=== PATIENT | female | born 1945 ===

== ENCOUNTER 2025-04-02 23:38 | Inpatient (IN) | payer MEDICAID, OTHER ==
[~2025-04-02] VITALS: Ht 152.4 cm; Wt 56.0 kg
--- NOTE | 2025-04-03 00:30 | ED.PDOC ---
History of Present Illness HPI Comments 79-year-old female who came to ER via EMS for shortness of breath. Patient has a history of hypertension. Per EMS, family members noted patient to be short of breath so they called paramedics. Upon arrival, patient is saturating 89% on room air, however patient denies being short of breath, states she just feels generally weak for the past hour. 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 Allergies: Coded Allergies: NO KNOWN ALLERGIES (Unverified , 04/02/25) Information Source: Patient, Emergency Med Personnel Mode of Arrival: EMS Severity: Moderate Timing: Hours Duration: Since onset Past Medical History PAST MEDICAL HISTORY: HTN, UTI'S Surgical History: Denies all surgeries SHEEP BONER History: Denies all SHEEP BONER Hx Family History Family History: Reviewed,noncontributory to illness Social History Smoker: Non-Smoker Alcohol: Denies ETOH Use Drugs: Denies Drug Use Lives In: Home Constitutional: reports: weakness; denies: chills, diaphoresis, fatigue, fever, malaise, sweats, others EENTM: denies: blurred vision, double vision, ear bleeding, ear discharge, ear drainage, ear pain, ear ringing, eye pain, eye redness, hearing loss, mouth pain, mouth swelling, nasal discharge, nose bleeding, nose congestion, nose pain, photophobia, tearing, throat pain, throat swelling, voice changes, others Respiratory: reports: shortness of breath; denies: cough, hemoptysis, orthop kenneth, SOB at rest, SOB with excertion, stridor, wheezing, others Cardiovascular: denies: chest pain, dizzy spells, diaphoresis, Dyspnea on exertion, edema, irregular heart beat, left arm pain, lightheadedness, palpitations, PND, syncope, others Gastrointestinal: denies: abdomen distended, abdominal pain, blood streaked bowels, constipated, diarrhea, dysphagia, difficulty swallowing, hematemesis, melena, nausea, poor appetite, poor fluid intake, rectal bleeding, rectal pain, vomiting, others Genitourinary: denies: abnormal vagina bleeding, burning, dyspareunia, dysuria, flank pain, frequency, hematuria, incontinence, pain, , vagina discharge, urgency, others Neurological: denies: dizziness, fainting, headache, left sided numbness, left sided weakness, numbness, paresthesia, pre-existing deficit, right sided numbness, right sided weakness, seizure, speech problems, tingling, tremors, weakness, others Musculoskeletal: denies: back pain, gout, joint pain, joint swelling, muscle pain, muscle stiffness, neck pain, others Integumetry: denies: bruises, change in color, change in hair/nails, dryness, laceration, lesions, lumps, rash, wounds, others Allergic/Immunocompromised: denies: Difficulty Healing, Frequent Infections, Hives, Itching, others Hematologic/Lymphatic: denies: anemia, blood clots, easy bleeding, easy bruising, swollen glands, others Endocrine: denies: excessive hunger, excessive sweating, excessive thirst, excessive urination, flushing, intolerance to cold, intolerance to heat, unexplained weight gain, unexplained weight loss, others Psychiatric: denies: anxiety, bipolar disorder, depression, hopeless, panic disorder, schizophrenia, sleepless, suicidal, others Physical Exam General Appearance: No Apparent Distress, Normal HEENT: Normal ENT Inspection, Pharynx Normal, TMs Normal Neck: Full Range of Motion, Non-Tender, Normal, Normal Inspection Respiratory: Chest Non-Tender, Lungs Clear, No Accessory Muscle Use, No Respiratory Distress, Normal Breath Sounds Cardiovascular: No Edema, No JVD, No Murmur, No Gallop, Normal Peripheral Pulses, Regular Rate/Rhythm Breast Exam: Deferred Gastrointestinal: No Organomegaly, Non Tender, No Pulsatile Mass, Normal Bowel Sounds, Soft Genitalia: Deferred Pelvic: Deferred Rectal: Deferred Extremities: No calf tenderness, Normal capillary refill, Normal inspection, Normal range of motion, Non-tender, No pedal edema Musculoskeletal : Apperance: Normal 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 Was a procedure done?: No Differential Dx Considerations may include: Anemia, electrolyte imbalance, urinary tract infection, pneumonia, weakness X-Ray, Labs, Meds, VS Vital Signs Date Time Temp Pulse Resp B/P (MAP) Pulse Ox O2 Delivery O2 Flow Rate FiO2 04/03/25 01:33 125 04/02/25 23:48 128 04/02/25 23:38 97.0 124 24 123/77 95 97.0 Lab Test 04/03/25 01:55 04/03/25 00:28 Range/Units Troponin I High Sensitivity 599 *H 762 *H </=34 ng/L White Blood Count 8.9 4.4-10.8 10^3/uL Red Blood Count 4.41 4.0-5.20 10^6/uL Hemoglobin 9.4 L 12.2-16.2 g/dL Hematocrit 30.1 L 36.0-46.0 % Mean Corpuscular Volume 68.2 L 80.0-100.0 fL Mean Corpuscular Hemoglobin 21.2 L 28.0-32.0 pg Mean Corpuscular Hemoglobin Concent 31.1 L 32.0-36.0 g/dL Red Cell Distribution Width 18.6 H 11.8-14.3 % Platelet Count 377 140-450 10^3/uL Mean Platelet Volume 7.1 6.9-10.8 fL Neutrophils (%) (Auto) 79.1 37.0-80.0 % Lymphocytes (%) (Auto) 13.4 10.0-50.0 % Monocytes (%) (Auto) 5.7 0.0-12.0 % Eosinophils (%) (Auto) 1.2 0.0-7.0 % Basophils (%) (Auto) 0.6 0.0-2.0 % Neutrophils # (Auto) 7.1 1.6-8.6 10 ^3/uL Lymphocytes # (Auto) 1.2 0.4-5.4 10 ^3/uL Monocytes # (Auto) 0.5 0-1.3 10 ^3/uL Eosinophils # (Auto) 0.1 0-0.8 10 ^3/uL Basophils # (Auto) 0.1 0-0.2 10 ^3/uL Nucleated Red Blood Cells 0.1 % Sodium Level 141 136-145 mmol/L Potassium Level 3.8 3.5-5.1 mmol/L Chloride Level 110 H 98-107 mmol/L Carbon Dioxide Level 19 L 20-31 mmol/L Anion Gap 12 5-15 Blood Urea Nitrogen 18 9-23 mg/dL Creatinine 0.84 0.550-1.02 mg/dL Glomerular Filtration Rate Calc 71 >90 mL/min BUN/Creatinine Ratio 21.4 H 10.0-20.0 Serum Glucose 152 H 74-106 mg/dL Lactic Acid Level 1.8 0.4-2.0 mmol/L Calcium Level 8.9 8.7-10.4 mg/dL Magnesium Level 2.4 1.6-2.6 mg/dL Total Bilirubin 0.3 0.2-1.0 mg/dL Aspartate Amino Transferase (AST) 27 13-40 U/L Alanine Aminotransferase (ALT) 28 7-40 U/L Alkaline Phosphatase 97 46-116 U/L B-Type Natriuretic Peptide 86.51 0-100 pg/mL Total Protein 7.2 5.7-8.2 g/dL Albumin 4.4 3.2-4.8 g/dL Time of 1ST Reevaluation: 00:27 Reevaluation 1ST: Unchanged Patient Education/Counseling: Diagnosis, Treatment Family Education/Counseling: No Family Present SEPSIS Sepsis Screen Physician Orders Electrocardigram (04/02/25 23:51) Troponin-I Hs (04/03/25 03:08) Chest Xray 1 View (04/03/25 00:08) Urinalysis (04/03/25 00:08) Blood Culture (04/03/25 00:08) Vital Signs Date Time Temp Pulse Resp B/P (MAP) Pulse Ox O2 Delivery O2 Flow Rate FiO2 04/03/25 01:33 125 04/02/25 23:48 128 04/02/25 23:38 97.0 124 24 123/77 95 97.0 Laboratory Tests Test 04/03/25 00:28 Lactic Acid Level 1.8 mmol/L (0.4-2.0) White Blood Count 8.9 10^3/uL (4.4-10.8) Departure 1 Departure Time of Disposition: 03:24 Impression: Primary Impression: Acute coronary syndrome Disposition: 09 ADMITTED INPATIENT Admit to: Tele Condition: Guarded Discharged With: Self Comments 79-year-old female with generalized weakness and shortness of breath. On lab review troponin is quite elevated see a 762. This improved and repeat is improved at 599. Also anemia noted at 9.4 and 30 H&H. Patient was given aspir in. Patient will need to be admitted for acute coronary syndrome Critical Care Note Critical Care Time?: Yes (35 min-critical care time only) Critical care comment: Shortness a breath Total critical care time: Approximately 36 minutes Due to a high probability of clinically significant, life threatening deterioration, the patient required my highest level of preparedness to intervene emergently and I personally spent this critical care time directly and personally managing the patient. This critical care time included obtaining a history; examining the patient; pulse oximetry; ordering and review of studies; arranging urgent treatment with development of a management plan; evaluation of patient's response to treatment; frequent reassessment; and, discussions with other providers. This critical care time was performed to assess and manage the high probability of imminent, life-threatening deterioration that could result in multi-organ failure. It was exclusive of separately billable procedures and treating other patients. Stability Stability form required: No Heart Score Heart Score: Heart Score Response (Comments) Value History Moderate Suspicious 1 EKG Repolarization Disturb 1 Age >65 2 Risk Factors 1 or 2 risk factors 1 Troponin >3 x's Normal limit 2 Total 7 I personally scribed for ARUN TOTH MD ([email or web address]) on 04/03/25 at 00:30. E lectronically submitted by Tiago Ingram ([email or web address]). ARUN TOTH MD Apr 03, 2025 00:30
[2025-04-03 00:53] LABS: Hemoglobin 9.4 g/dL (12.2-16.2); Nucleated Red Blood Cells % 0.1 %
[2025-04-03 00:55] LABS: Hematocrit 30.1 % (36.0-46.0); Mean Corpuscular Hemoglobin 21.2 pg (28.0-32.0); Mean Corpuscular Volume 68.2 fL (80.0-100.0)
[2025-04-03 01:10] LABS: Alanine Aminotransferase 28 U/L (7-40); Albumin 4.4 g/dL (3.2-4.8); Alkaline Phosphatase 97 U/L (46-116); Anion Gap 12 (5-15); BUN/Creatinine Ratio 21.4 (10.0-20.0); Blood Urea Nitrogen 18 mg/dL (9-23); Calcium 8.9 mg/dL (8.7-10.4); Magnesium 2.4 mg/dL (1.6-2.6); Potassium 3.8 mmol/L (3.5-5.1); Sodium 141 mmol/L (136-145); Total Protein 7.2 g/dL (5.7-8.2)
[2025-04-03 01:16] LABS: Bilirubin, Total 0.3 mg/dL (0.2-1.0); Carbon Dioxide 19 mmol/L (20-31); Chloride 110 mmol/L (98-107); Glucose 152 mg/dL (74-106)
--- NOTE | 2025-04-03 03:54 | DVH ---
CHEST RADIOGRAPH Indication: SOB Technique: Single frontal view of the chest was obtained COMPARISON: None FINDINGS: Lines and Tubes: None Lungs: Clear Pleura: No effusion. No pneumothorax. Cardiomediastinal contours: Unremarkable Bones: Unremarkable IMPRESSION: 1. No acute disease.
[2025-04-03 07:30] VITALS: PULSE 109; RESP 18; O2SAT 98
--- NOTE | 2025-04-03 08:12 | DVHHP2 ---
History of Present Illness Reason for Visit: Shortness of breath History of Present Illness Elsie Ferrer is a 79-year-old female with past medical history of hypertension, who was brought to the hospital for shortness of breath. Family states the patient was short of breath prompting them to call EMS. Patient is altered and unsure why she is in the hospital. She denies any shortness of breath or chest pain on assessment. Cardiovascular: HTN Past Surgical History: None Smoke: No ALCOHOL: none Drugs: None Lives: with Family Domestic Violence: Neg Review of Systems Constitutional: No: Fever, Chills, Sweats, Weakness, Malaise, Other Eyes: No: Pain, Vision change, Conjunctivae inflammation, Eyelid inflammation, Other, Redness ENT: No: Ear pain, Ear discharge, Nose pain, Nose discharge, Nose congestion, Mouth pain, Mouth swelling, Throat pain, Throat swelling, Other Respiratory: Shortness of breath; No: Cough, Dry, SOB with excertion, Wheezing, Hemoptysis, Pleuritic Pain, Sputum, Wheezing, Other Cardiovascular: No: Chest Pain, Palpitations, Orthopnea, Paroxysmal Noc. Dyspnea, Edema, Lt Headedness, Other Gastrointestinal: No: Nausea, Vomiting, Abdominal Pain, Diarrhea, Constipation, Melena, Hematochezia, Other Genitourinary: No Dysuria, No Frequency, No Incontinence, No Hematuria, No Retention, No Other Musculoskeletal: No: other, neck pain, shoulder pain, arm pain, back pain, hand pain, leg pain, foot pain Skin: No: Rash, Lesions, Jaundice, Bruising, Other Neurological: No: Weakness, Numbness, Incoordination, Change in speech, Confusion, Seizures, Other Allergies: Coded Allergies: NO KNOWN ALLERGIES (Unverified , 04/02/25) Exam Vital Signs Vital Signs Date Time Temp Pulse Resp B/P (MAP) Pulse Ox O2 Delivery O2 Flow Rate FiO2 04/03/25 06:00 108 17 122/68 (86) 100 04/03/25 04:00 Room Air* 0 21 04/03/25 04:00 98.6 98.6 General Appearance: Alert, Cooperative, mild distress, Other (Oriented x 2) HEENT: Atraumatic, PERRLA Respiratory: Clear to auscultation, Normal air movement Cardiovascular: Normal S1, Normal S2, Other (ST) Abdominal: Normal bowel sounds, Soft, No tenderness, No hepatospenomegaly Extremities: No clubbing, No cyanosis, No edema, Normal pulses, No tenderness/swelling Skin: No rashes, No breakdown, No significant lesion Neuro: Normal gait, Normal speech, Strength at 5/5 X4 ext Psych/Mental Status: Mental status NL, Mood NL Labs/Xrays Labs Test 04/03/25 03:12 04/03/25 00:28 Range/Units Troponin I High Sensitivity 546 *H </=34 ng/L White Blood Count 8.9 4.4-10.8 10^3/uL Red Blood Count 4.41 4.0-5.20 10^6/uL Hemoglobin 9.4 L 12.2-16.2 g/dL Hematocrit 30.1 L 36.0-46.0 % Mean Corpuscular Volume 68.2 L 80.0-100.0 fL Mean Corpuscular Hemoglobin 21.2 L 28.0-32.0 pg Mean Corpuscular Hemoglobin Concent 31.1 L 32.0-36.0 g/dL Red Cell Distribution Width 18.6 H 11.8-14.3 % Platelet Count 377 140-450 10^3/uL Mean Platelet Volume 7.1 6.9-10.8 fL Neutrophils (%) (Auto) 79.1 37.0-80.0 % Lymphocytes (%) (Auto) 13.4 10.0-50.0 % Monocytes (%) (Auto) 5.7 0.0-12.0 % Eosinophils (%) (Auto) 1.2 0.0-7.0 % Basophils (%) (Auto) 0.6 0.0-2.0 % Neutrophils # (Auto) 7.1 1.6-8.6 10 ^3/uL Lymphocytes # (Auto) 1.2 0.4-5.4 10 ^3/uL Monocytes # (Auto) 0.5 0-1.3 10 ^3/uL Eosinophils # (Auto) 0.1 0-0.8 10 ^3/uL Basophils # (Auto) 0.1 0-0.2 10 ^3/uL Nucleated Red Blood Cells 0.1 % Sodium Level 141 136-145 mmol/L Potassium Level 3.8 3.5-5.1 mmol/L Chloride Level 110 H 98-107 mmol/L Carbon Dioxide Level 19 L 20-31 mmol/L Anion Gap 12 5-15 Blood Urea Nitrogen 18 9-23 mg/dL Creatinine 0.84 0.550-1.02 mg/dL Glomerular Filtration Rate Calc 71 >90 mL/min BUN/Creatinine Ratio 21.4 H 10.0-20.0 Serum Glucose 152 H 74-106 mg/dL Lactic Acid Level 1.8 0.4-2.0 mmol/L Calcium Level 8.9 8.7-10.4 mg/dL Magnesium Level 2.4 1.6-2.6 mg/dL Total Bilirubin 0.3 0.2-1.0 mg/dL Aspartate Amino Transferase (AST) 27 13-40 U/L Alanine Aminotransferase (ALT) 28 7-40 U/L Alkaline Phosphatase 97 46-116 U/L B-Type Natriuretic Peptide 86.51 0-100 pg/mL Total Protein 7.2 5.7-8.2 g/dL Albumin 4.4 3.2-4.8 g/dL CHEST RADIOGRAPH FINDINGS: Lines and Tubes: None Lungs: Clear Pleura: No effusion. No pneumothorax. Cardiomediastinal contours: Unremarkable Bones: Unremarkable IMPRESSION: 1. No acute disease. SEPSIS Sepsis Screen Date sepsis recognized/suspect: Apr 02, 2025 Time Sepsis recognized/suspect: 2337 Recent Procedure: No On Antibiotic Therapy: No Respiratory Rate >20: No Heart Rate >90: No Temp<36 C (96.8 F) or >38.3 C: No SBP <90 or MAP <65 mmHG: No New Acute Mental Status Change: No Is the patient on CPAP, BIPAP,: No Physician Orders * Cardiology Consult (04/03/25 08:07) Admit (04/03/25 08:07) Code Status (04/03/25 08:07) Hydrocodone-Acet 5/325mg Tab ([place] 5/32 (04/03/25 08:15) Ondansetron Hcl (Zofran) (04/03/25 08:15) Docusate Sodium Capsule (Colace Capsule) (04/03/25 08:15) Complete Blood Count (04/04/25 04:00) Comprehensive Metabolic Panel (04/04/25 04:00) Npo (Nothing By Mouth) Diet (04/03/25 Breakfast) Echo 2d Mode Cardiac Dop (04/03/25 08:07) Condition: Serious (04/03/25 08:07) Acetaminophen Tablet (Tylenol Tablet) (04/03/25 08:15) Vital Signs Date Time Temp Pulse Resp B/P (MAP) Pulse Ox O2 Delivery O2 Flow Rate FiO2 04/03/25 06:00 108 17 122/68 (86) 100 04/03/25 04:00 114 04/03/25 04:00 Room Air* 0 21 04/03/25 04:00 98.6 114 21 132/54 (80) 100 98.6 04/03/25 01:33 125 Laboratory Tests Test 04/03/25 00:28 Lactic Acid Level 1.8 mmol/L (0.4-2.0) White Blood Count 8.9 10^3/uL (4.4-10.8) Assessment/Plan Assessment/Plan Assessment: Elevated troponin, R/O ACS, Anemia, Hypertension, Plan: Admit to Tele, Cardiology consult, ECHO, TSH, lipid panel, A1c, Supplemental oxygen as needed, Home medications reconciled, Plan discussed with: Patient My Orders Orders - ELISA SHARMA Procedure Category Date Status Time * Cardiology Consult CONS 04/03/25 Verified 08:07 Admit ADMIT 04/03/25 Verified 08:07 Code Status CODE 04/03/25 Verified 08:07 Hydrocodone-Acet PHA 04/03/25 Verified 5/325mg Tab ([place] 08:15 Ondansetron Hcl PHA 04/03/25 Verified (Zofran) 08:15 Docusate Sodium PHA 04/03/25 Verified Capsule (Colace 08:15 Complete Blood Count LAB 04/04/25 Verified 04:00 Comprehensive LAB 04/04/25 Verified Metabolic Panel 04:00 Npo (Nothing By DIET 04/03/25 Verified Mouth) Diet Breakfast Echo 2d Mode Cardiac US 04/03/25 Verified DOP 08:07 Condition: Serious FERNANDO 04/03/25 Verified 08:07 Acetaminophen Tablet PHA 04/03/25 Verified (Tylenol Tablet) 08:15 Date of Service: Apr 03, 2025 Billing Provider: ELISA SHARMA Common Visit Codes: [id number] INP/OBS CARE (HIGH) ELISA SHARMA Apr 03, 2025 08:12
[2025-04-03] MEDS ORDERED: HYDROcodone-ACET 5/325MG TAB PO PRN (08:15)
[2025-04-03] MEDS ORDERED: ONDANSETRON HCL 4 MG/2 ML VIAL IV PRN (08:15)
[2025-04-03] MEDS ORDERED: MORPHINE SULFATE INJ 2 MG/ml SYRG IV PRN (08:15)
[2025-04-03] MEDS ORDERED: DOCUSATE SOD 100 MG CAP PO PRN (08:15)
[2025-04-03] MEDS ORDERED: NITROGLYCERIN 0.4 MG SL TAB SL PRN (08:15)
[2025-04-03 11:00] LABS: Triglycerides 95 mg/dL (< 150)
[2025-04-03 11:02] LABS: Cholesterol 139 mg/dL (< 200); HDL Cholesterol 50 mg/dL (40-59)
--- NOTE | 2025-04-03 11:31 | ECG ---
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
[2025-04-03 14:20] VITALS: BP 121/78; PULSE 102; RESP 17; TEMP 97.7; O2SAT 96
--- NOTE | 2025-04-03 16:26 | DVHINCON2 ---
Date Seen: Apr 03, 2025 Referring Physician MARY Malone Reason for Consultation Elevated troponin History of Present Illness This is a Hong Konger-speaking 79-year-old female patient who presents to the emergency room with chief complaint of shortness of breath. At the time of assessment, the patient is alert oriented x 2-3 with some periods of confusion. The patient's daughter is at bedside during assessment. The patient's daughter who was at bedside states that she noticed that the patient appeared extremely short of breath at approximately 8:30 p.m. last night after having dinner and walking towards her bedroom. Associated symptoms include dizziness. The patient denies any chest pain. She was brought to the emergency room for further evaluation. Cardiology has been consulted at this time for elevated troponin level. Initial twelve lead electrocardiogram reveals sinus tachycardia without any significant ST segment changes. Initial troponin level of 762ng/L with down trend thereafter. Significant past medical history includes hypertension, dyslipidemia, peptic ulcer disease, and chronic back pain. Past Medical History Past medical history reviewed. No other significant than mentioned above. Past Surgical History Denies any previous surgeries Family History Family history reviewed. Social History Denies the use of tobacco, alcohol or illicit drugs. Allergies: Coded Allergies: NO KNOWN ALLERGIES (Unverified , 04/02/25) Home Meds Home medications reviewed. Current Medications Current Medications Medications (Trade) Dose Ordered Sig/Suellen Route PRN Reason Start Time Stop Time Status Last Admin Acetaminophen/ Hydrocodone Bitart ([place] 5/325MG Tab) 1 tab Q4HP PRN PO MODERATE PAIN (4-6 PAIN SCALE) 04/03/25 08:15 Ondansetron HCl (Zofran) 4 mg Q4HP PRN IV NAUSEA / VOMITING 04/03/25 08:15 Docusate Sodium (Colace Capsule) 100 mg BIDPRN PRN PO FOR CONSTIPATION 04/03/25 08:15 Acetaminophen (Tylenol Tablet) 650 mg Q6HP PRN PO PAIN SCALE 1-3 OR TEMP>100.4 04/03/25 08:15 Nitroglycerin (Ntrostat Sublingual) 0.4 mg Q5MINP PRN SL FOR CHEST PAIN 04/03/25 08:15 Morphine Sulfate 2 mg Q30M PRN IV FOR CHEST PAIN 04/03/25 08:15 Review of Systems Constitutional: No symptom reported Ears, Nose, & Throat: No symptom reported Eyes: No symptom reported Neurological: No symptoms reported Pulmonary/Respiratory: Shortness of breath Cardiovascular: No symptom reported Gastrointestinal: No symptom reported Genitourinary: No symptom reported Musculoskeletal: No symptom reported Skin: No symptom reported Psychiatric: No symptom reported Endocrine: No symptom reported Hematologic/Lymphatic: No symptom reported Vital Signs Vital Signs Date Time Temp Pulse Resp B/P (MAP) Pulse Ox O2 Delivery O2 Flow Rate FiO2 04/03/25 13:30 98.6 95 14 125/74 (91) 98 98.6 04/03/25 07:30 Room Air* 0 21 Physical Exam General Appearance: Cooperative. Well-developed. Well-nourished. No acute distress. Pulmonary/Respiratory: Clear, bilateral breaths sounds. Cardiovascular/Chest: Regular rate and rhythm. Peripheral Pulses: 2+ Radial (R). 2+ Radial (L). 2+ Pedal (R). 2+ Pedal (L) Abdominal Exam: Normal bowel sounds. Ankle Exam: Negative ankle edema Lower extremities: Negative lower extremity edema Neuro/Mental Status: A/OX3, coherent with periods of confusion Thoughts/Psych: Normal thought pattern. Appropriate mood and affect. Good judgment and insight. Appearance: No acute distress. Skin Exam: Normal inspection. Normal color. Warm and dry. Labs/Diagnostic Data Labs Test 04/03/25 14:43 04/03/25 03:12 04/03/25 00:28 Range/Units D-Dimer, Quantitative 9.25 H 0.0-0.49 mg/L FEU Troponin I High Sensitivity 546 *H </=34 ng/L Triglycerides Level 95 < 150 mg/dL Cholesterol Level 139 < 200 mg/dL LDL Cholesterol 88 < 100 mg/dL HDL Cholesterol 50 40-59 mg/dL Thyroid Stimulating Hormone (TSH) 1.26 0.55-4.78 uIU/mL White Blood Count 8.9 4.4-10.8 10^3/uL Red Blood Count 4.41 4.0-5.20 10^6/uL Hemoglobin 9.4 L 12.2-16.2 g/dL Hematocrit 30.1 L 36.0-46.0 % Mean Corpuscular Volume 68.2 L 80.0-100.0 fL Mean Corpuscular Hemoglobin 21.2 L 28.0-32.0 pg Mean Corpuscular Hemoglobin Concent 31.1 L 32.0-36.0 g/dL Red Cell Distribution Width 18.6 H 11.8-14.3 % Platelet Count 377 140-450 10^3/uL Mean Platelet Volume 7.1 6.9-10.8 fL Neutrophils (%) (Auto) 79.1 37.0-80.0 % Lymphocytes (%) (Auto) 13.4 10.0-50.0 % Monocytes (%) (Auto) 5.7 0.0-12.0 % Eosinophils (%) (Auto) 1.2 0.0-7.0 % Basophils (%) (Auto) 0.6 0.0-2.0 % Neutrophils # (Auto) 7.1 1.6-8.6 10 ^3/uL Lymphocytes # (Auto) 1.2 0.4-5.4 10 ^3/uL Monocytes # (Auto) 0.5 0-1.3 10 ^3/uL Eosinophils # (Auto) 0.1 0-0.8 10 ^3/uL Basophils # (Auto) 0.1 0-0.2 10 ^3/uL Nucleated Red Blood Cells 0.1 % Sodium Level 141 136-145 mmol/L Potassium Level 3.8 3.5-5.1 mmol/L Chloride Level 110 H 98-107 mmol/L Carbon Dioxide Level 19 L 20-31 mmol/L Anion Gap 12 5-15 Blood Urea Nitrogen 18 9-23 mg/dL Creatinine 0.84 0.550-1.02 mg/dL Glomerular Filtration Rate Calc 71 >90 mL/min BUN/Creatinine Ratio 21.4 H 10.0-20.0 Serum Glucose 152 H 74-106 mg/dL Hemoglobin A1c 5.6 <5.7 % A1C Lactic Acid Level 1.8 0.4-2.0 mmol/L Calcium Level 8.9 8.7-10.4 mg/dL Magnesium Level 2.4 1.6-2.6 mg/dL Total Bilirubin 0.3 0.2-1.0 mg/dL Aspartate Amino Transferase (AST) 27 13-40 U/L Alanine Aminotransferase (ALT) 28 7-40 U/L Alkaline Phosphatase 97 46-116 U/L B-Type Natriuretic Peptide 86.51 0-100 pg/mL Total Protein 7.2 5.7-8.2 g/dL Albumin 4.4 3.2-4.8 g/dL Assessment NSTEMI Rule out pulmonary embolism Rule out structural heart disease Hypertension Dyslipidemia History of peptic ulcer disease Plan/Recommendation We will continue with the following plan/recommendations (Dr. Bradley): We will proceed with obtaining a transthoracic echocardiogram to evaluate cardiac function and assess wall motion. At the time of assessment, the patient denies any cardiac symptoms. Patient noted to be in sinus tachycardia on polymer materials consultant even while lying in bed. D-dimer elevated. CTA ordered to rule out pulmonary embolism. Initiate therapeutic Lovenox in the meantime. No significant ST segment changes seen on twelve lead electrocardiogram. Further recommendations per clinical course and progression. Thank you for allowing us to care for this patient. Please call with any questions or concerns. Critical care time spent: 44 minutes This medical document was created using an electronic medical record system with voice recognition software and computerized dictation system. Although this document has been carefully reviewed, there might still be some phonetic and typographical errors. Occasional wrong-word or ``sound-alike substitutions may have occurred due to the inherent limitations of voice recognition software. These areas are purely typographical due to imperfections of the software programs and do not reflect any compromise in the patient's medical care. Please read the chart carefully and recognize, using context, where these substitutions have occurred. Plan discussed with: Patient NYHA Physical activity limitations: NA Date of Service: Apr 03, 2025 Billing Provider: HENRRY GRAMAJO Cardiology Common Codes: [id number] INP/OBS CARE (High) Cardiology Consultation Codes: [id number] CONSULT <45MIN HENRRY GRAMAJO Apr 03, 2025 16:26
[2025-04-03] MEDS: IOHEXOL 350 MG/ML 100ML IJ ONE (16:43)
[2025-04-03 17:00] VITALS: BP 133/72; PULSE 120; RESP 16; TEMP 97.8; O2SAT 95
--- NOTE | 2025-04-03 19:30 | DVH ---
CLINICAL HISTORY: elevated d-dimer TECHNIQUE: Color and duplex doppler imaging of the bilateral lower extremity veins was performed. Ves urban compression if possible was also performed. WID: COMPARISON: None FINDINGS: Right Lower Extremity: Right common femoral vein: Normal compressibility and flow. Right femoral vein: Nonocclusive echogenic linear thrombus in the proximal to mid superficial femoral vein. Occlusive hypoechoic thrombus in the distal superficial femoral vein. Right popliteal vein: Occlusive thrombus, mixed echogenicity. Hypoechoic Occlusive thrombus in the posterior tibial vein. Left Lower Extremity: Left common femoral vein: Normal compressibility and flow. Left femoral vein: Normal compressibility and flow. Left popliteal vein: Nonocclusive echogenic linear thrombus in the popliteal vein. Proximal calf veins are normally compressible. IMPRESSION: 1. Subacute to chronic nonocclusive thrombus in the proximal to mid right superficial femoral vein an d the left popliteal vein. 2. More acute appearing occlusive thrombus in the distal right superficial femoral vein and right pos terior tibial vein.
[2025-04-03 20:00] VITALS: PULSE 103; PULSE 109; RESP 18; O2SAT 96
[2025-04-03 21:00] VITALS: BP 103/82; PULSE 110; RESP 18; TEMP 99.2; O2SAT 96
[2025-04-03] MEDS ORDERED: ENOXAPARIN SOD 60 MG/0.6 ML SYRINGE SC SCH (22:00)
--- NOTE | 2025-04-03 23:49 | DVHINCON2 ---
Date Seen: Apr 03, 2025 Referring Physician MARY Malone Reason for Consultation Elevated troponin History of Present Illness This is a Salvadorean-speaking 79-year-old female with a past medical history of hypertension, dyslipidemia, peptic ulcer disease, and chronic back pain who presents to the ED with complaint of shortness of breath. At the time of assessment, the patient is alert oriented x 2-3 with some periods of confusion. The patient's daughter is at bedside during assessment. The patient's daughter who was at bedside states that she noticed that the patient appeared extremely short of breath at approximately 8:30 p.m. last night after having dinner and walking towards her bedroom. Associated symptoms include dizziness. The patient denies any chest pain. She was brought to the ED for further evaluation. Cardiology has been consulted at this time for elevated troponin level. Initial twelve lead electrocardiogram reveals sinus tachycardia without any significant ST segment changes. Initial troponin level of 762ng/L with down trend thereafter. HGB 9.4, HCT 30.1, D-DIMER 9.25. Chest x-ray showed NAD. Past Medical History Past medical history reviewed. No other significant than mentioned above. Past Surgical History Denies any previous surgeries Allergies: Coded Allergies: NO KNOWN ALLERGIES (Unverified , 04/02/25) Current Medications Current Medications Medications (Trade) Dose Ordered Sig/Suellen Route PRN Reason Start Time Stop Time Status Last Admin Acetaminophen/ Hydrocodone Bitart ([place] 5/325MG Tab) 1 tab Q4HP PRN PO MODERATE PAIN (4-6 PAIN SCALE) 04/03/25 08:15 Ondansetron HCl (Zofran) 4 mg Q4HP PRN IV NAUSEA / VOMITING 04/03/25 08:15 Docusate Sodium (Colace Capsule) 100 mg BIDPRN PRN PO FOR CONSTIPATION 04/03/25 08:15 Acetaminophen (Tylenol Tablet) 650 mg Q6HP PRN PO PAIN SCALE 1-3 OR TEMP>100.4 04/03/25 08:15 Nitroglycerin (Ntrostat Sublingual) 0.4 mg Q5MINP PRN SL FOR CHEST PAIN 04/03/25 08:15 Morphine Sulfate 2 mg Q30M PRN IV FOR CHEST PAIN 04/03/25 08:15 Enoxaparin Sodium (Lovenox) 60 mg Q12HR SC 04/03/25 22:00 UNV Review of Systems Constitutional: No symptom reported Ears, Nose, & Throat: No symptom reported Eyes: No symptom reported Neurological: No symptoms reported Pulmonary/Respiratory: Shortness of breath Cardiovascular: No symptom reported Gastrointestinal: No symptom reported Genitourinary: No symptom reported Musculoskeletal: No symptom reported Skin: No symptom reported Psychiatric: No symptom reported Endocrine: No symptom reported Hematologic/Lymphatic: No symptom reported Vital Signs Vital Signs Date Time Temp Pulse Resp B/P (MAP) Pulse Ox O2 Delivery O2 Flow Rate FiO2 04/03/25 17:00 97.8 120 16 133/72 (92) 95 97.8 04/03/25 07:30 Room Air* 0 21 Physical Exam GENERAL: Alert and oriented x 3. No acute distress. EYES: PERRL, EOMI. Anicteric. HENT: Moist mucous membranes. LUNGS: Clear to auscultation bilaterally. CARDIOVASCULAR: Regular rate and rhythm. ABDOMEN: Soft, nontender and nondistended. EXTREMITIES: No edema. NEUROLOGIC: No focal neurological deficits. SKIN: Warm, dry. Labs/Diagnostic Data Labs Test 04/03/25 14:43 04/03/25 03:12 04/03/25 00:28 Range/Units D-Dimer, Quantitative 9.25 H 0.0-0.49 mg/L FEU Troponin I High Sensitivity 546 *H </=34 ng/L Triglycerides Level 95 < 150 mg/dL Cholesterol Level 139 < 200 mg/dL LDL Cholesterol 88 < 100 mg/dL HDL Cholesterol 50 40-59 mg/dL Thyroid Stimulating Hormone (TSH) 1.26 0.55-4.78 uIU/mL White Blood Count 8.9 4.4-10.8 10^3/uL Red Blood Count 4.41 4.0-5.20 10^6/uL Hemoglobin 9.4 L 12.2-16.2 g/dL Hematocrit 30.1 L 36.0-46.0 % Mean Corpuscular Volume 68.2 L 80.0-100.0 fL Mean Corpuscular Hemoglobin 21.2 L 28.0-32.0 pg Mean Corpuscular Hemoglobin Concent 31.1 L 32.0-36.0 g/dL Red Cell Distribution Width 18.6 H 11.8-14.3 % Platelet Count 377 140-450 10^3/uL Mean Platelet Volume 7.1 6.9-10.8 fL Neutrophils (%) (Auto) 79.1 37.0-80.0 % Lymphocytes (%) (Auto) 13.4 10.0-50.0 % Monocytes (%) (Auto) 5.7 0.0-12.0 % Eosinophils (%) (Auto) 1.2 0.0-7.0 % Basophils (%) (Auto) 0.6 0.0-2.0 % Neutrophils # (Auto) 7.1 1.6-8.6 10 ^3/uL Lymphocytes # (Auto) 1.2 0.4-5.4 10 ^3/uL Monocytes # (Auto) 0.5 0-1.3 10 ^3/uL Eosinophils # (Auto) 0.1 0-0.8 10 ^3/uL Basophils # (Auto) 0.1 0-0.2 10 ^3/uL Nucleated Red Blood Cells 0.1 % Sodium Level 141 136-145 mmol/L Potassium Level 3.8 3.5-5.1 mmol/L Chloride Level 110 H 98-107 mmol/L Carbon Dioxide Level 19 L 20-31 mmol/L Anion Gap 12 5-15 Blood Urea Nitrogen 18 9-23 mg/dL Creatinine 0.84 0.550-1.02 mg/dL Glomerular Filtration Rate Calc 71 >90 mL/min BUN/Creatinine Ratio 21.4 H 10.0-20.0 Serum Glucose 152 H 74-106 mg/dL Hemoglobin A1c 5.6 <5.7 % A1C Lactic Acid Level 1.8 0.4-2.0 mmol/L Calcium Level 8.9 8.7-10.4 mg/dL Magnesium Level 2.4 1.6-2.6 mg/dL Total Bilirubin 0.3 0.2-1.0 mg/dL Aspartate Amino Transferase (AST) 27 13-40 U/L Alanine Aminotransferase (ALT) 28 7-40 U/L Alkaline Phosphatase 97 46-116 U/L B-Type Natriuretic Peptide 86.51 0-100 pg/mL Total Protein 7.2 5.7-8.2 g/dL Albumin 4.4 3.2-4.8 g/dL Assessment NSTEMI. Rule out pulmonary embolism. Rule out structural heart disease. Hypertension. Dyslipidemia. History of peptic ulcer disease. Plan/Recommendation I agree with your ongoing assessment and care of plan. Patient has been seen by Radha Galindo NP on my behalf, her and I discussed the plan with the patient. We will proceed with obtaining a transthoracic echocardiogram to evaluate cardiac function and assess wall motion. At the time of assessment, the patient denies any cardiac symptoms. Patient noted to be in sinus tachycardia on cardiac nurse practitioner even while lying in bed. D-dimer elevated. CTA ordered to rule out pulmonary embolism. Initiate therapeutic Lovenox in the meantime. No significant ST segment changes seen on twelve lead electrocardiogram. Further recommendations per clinical course and progression. Additional plan as per the hospital course. Plan discussed with: Patient NYHA Physical activity limitations: NA Date of Service: Apr 03, 2025 Billing Provider: LASHA VELÁZQUEZ MD Cardiology Common Codes: [id number] INP/OBS CARE (High) Cardiology Consultation Codes: [id number] CONSULT <45MIN LASHA VELÁZQUEZ MD Apr 03, 2025 18:36
[2025-04-04] VITALS (8 sets, daily range): BP systolic 101–140; BP diastolic 67–82; PULSE 91–104; RESP 14–18; TEMP 97.7–98.9; O2SAT 96–98
--- NOTE | 2025-04-04 02:36 | DVHSR ---
APPROVED REPORT EXAM: LIMITED Two-dimensional and M-mode echocardiogram with Doppler and color Doppler. Blood Pressure: 122/68 mmHg INDICATION Elevated Troponin R/O ACS RISK FACTORS Height: 5', Weight: 149 DIMENSIONS LVDd3.8 (3.8-5.7cm)LA (2D)3.5 (1.9-4.0cm)Aortic Root2.8 (2.0-3.7cm) LVDs2.6 (2.5-4.0cm)LA (MM) (1.9-4.0cm)Aortic Cusp Exc1.7 (1.5-2.0cm) EF (%) 60.0 (55-70%)Rt. Atrium4.5 (1.9-4.0cm)Asc. Aorta cm IVSd1.1 (0.7-1.1cm)RV (D) (1.8-2.4cm) PWd1.0 (0.7-1.1cm) Mitral Valve MitralMitral Stenosis E wave0.50m/sMV Mean GR.mmHg A wave0.80m/sMV Peak GR.mmHg E/A ratio0.62D MVAcm2 Aortic Valve Aortic ValveAortic Stenosis V10.70m/Channing Mean GR.2mmHg V20.90m/Channing Peak GR.4mmHg LVOT Diameter2.0 (1.8-2.4cm)Doppler AVA2.44cm2 Pulmonic Valve V20.40m/s Tricuspid Valve TR Velocity3.10m/s [id number] Other Information Quality : Technically LimitedRhythm : Technically limited study due to patient position. Conclusion MODERATELY DILATED RV AND RA MODERATE DEGREE PULMONARY HYPERTENSION RVSP IS 50 MM OF HG AND IS MODERATELY HIGH MODERATE DEGREE LVH AND MODERATE DEGREE PULMONARY HYPERTENSION LV EF IS 65% AND IS NORMAL NORMAL VALVES NO EFFUSION
[2025-04-04] MEDS: ENOXAPARIN SOD 60 MG/0.6 ML SYRINGE SC SCH (03:29)
[2025-04-04 08:27] LABS: Hematocrit 27.9 % (36.0-46.0); Hemoglobin 8.6 g/dL (12.2-16.2); Mean Corpuscular Hemoglobin 21.4 pg (28.0-32.0); Mean Corpuscular Volume 69.2 fL (80.0-100.0); Nucleated Red Blood Cells % 0.1 %
[2025-04-04 09:02] LABS: Alanine Aminotransferase 26 U/L (7-40); Albumin 3.4 g/dL (3.2-4.8); Alkaline Phosphatase 74 U/L (46-116); Anion Gap 13 (5-15); BUN/Creatinine Ratio 23.9 (10.0-20.0); Blood Urea Nitrogen 16 mg/dL (9-23); Glucose 91 mg/dL (74-106); Potassium 3.9 mmol/L (3.5-5.1); Sodium 144 mmol/L (136-145); Total Protein 5.7 g/dL (5.7-8.2)
[2025-04-04 09:03] LABS: Bilirubin, Total 0.4 mg/dL (0.2-1.0)
[2025-04-04 09:04] LABS: Calcium 8.5 mg/dL (8.7-10.4); Carbon Dioxide 19 mmol/L (20-31); Chloride 112 mmol/L (98-107)
--- NOTE | 2025-04-04 11:16 | DVHPN2 ---
Consult Progress Note Subjective Patient reports: Feels better Objective vital signs Vital Sign Date Time Temp Pulse Resp B/P (MAP) Pulse Ox O2 Delivery O2 Flow Rate FiO2 04/04/25 09:00 97.7 95 16 123/82 (96) 98 97.7 04/03/25 20:00 Room Air* 0 21 Total Intake and Output 04/03/25 04/03/25 04/04/25 15:00 23:00 07:00 Intake Total 0 ml Balance 0 ml medications Current Medications Medications Dose Ordered Sig/Suellen Route Start Time Stop Time Status Last Admin Dose Admin Acetaminophen/ Hydrocodone Bitart 1 tab Q4HP PRN PO 04/03/25 08:15 Ondansetron HCl 4 mg Q4HP PRN IV 04/03/25 08:15 Docusate Sodium 100 mg BIDPRN PRN PO 04/03/25 08:15 Acetaminophen 650 mg Q6HP PRN PO 04/03/25 08:15 Nitroglycerin 0.4 mg Q5MINP PRN SL 04/03/25 08:15 Morphine Sulfate 2 mg Q30M PRN IV 04/03/25 08:15 Enoxaparin Sodium 60 mg Q12HR SC 04/04/25 04:00 04/04/25 10:56 60 MG Examination: CVS:Normal (Telemetry reviewed consistent with sinus rhythm at 94 beats per minute.) laboratory and microbiology Laboratory Tests 04/04/25 08:09 Test 04/04/25 08:09 Range/Units Serum Glucose 91 74-106 mg/dL Problem List/Assessment/Plan Problem List/Assessment/Plan Assessment NSTEMI Rule out pulmonary embolism Rule out structural heart disease Hypertension Dyslipidemia History of peptic ulcer disease Plan/Recommendation We will continue with the following plan/recommendations (Dr. Bradley): Follow up echo showing normal LVEF 65%, moderate degree of pulmonary hypertension with RVSP 50 mmHg, moderately dilated RV and RA normal function. At the time of assessment, the patient denies any cardiac symptoms. Patient noted to be in sinus tachycardia on cardiac catheterization technologist even while lying in bed. D-dimer elevated. CTA pending to rule out pulmonary embolism. Continue therapeutic Lovenox in the meantime. Monitoring H&H, no overt signs of bleeding. No significant ST segment changes seen on twelve lead electrocardiogram. Further recommendations per clinical course and progression. Thank you for allowing us to care for this patient. Please call with any questions or concerns. Critical care time spent: 44 minutes This medical document was created using an electronic medical record system with voice recognition software and computerized dictation system. Although this document has been carefully reviewed, there might still be some phonetic and typographical errors. Occasional wrong-word or ``sound-alike substitutions may have occurred due to the inherent limitations of voice recognition software. These areas are purely typographical due to imperfections of the software programs and do not reflect any compromise in the patient's medical care. Please read the chart carefully and recognize, using context, where these substitutions have occurred. Plan discussed with: Patient Date of Service: Apr 04, 2025 Billing Provider: TAPAN BECK Common Visit Codes: [id number] INP/OBS CARE(HIGH) TAPAN BECK Apr 04, 2025 11:16
[2025-04-04] MEDS: IOHEXOL 350 MG/ML 100ML IJ ONE (11:37)
--- NOTE | 2025-04-04 13:37 | DVH ---
CLINICAL INFORMATION: Elevated D-dimer. Shortness of breath. Tachycardia. Pulmonary embolism. TECHNIQUE: Axial CTA images of the chest were obtained after the uneventful administration of 100 mL of Omnipaque 350 IV contrast. Coronal and sagittal reformatted images and MIP images were obtained, r eviewed, and stored. One or more of the following dose reduction techniques were used: Automated expo sure control. Adjustment of mA and/or kV according to patient size. CTDIvol = 19.25 mGy DLP = 587.98 mGy-cm COMPARISON: US ECHO 2D MODE CARDIAC DOP on DOS: 04/03/25, XY CHEST XRAY 1 VIEW on DOS: 04/03/25 FINDINGS: Pulmonary arteries: Bilateral pulmonary emboli involving the distal main pulmonary arteries and exten ding into the proximal lobar branches. There is also extension into the proximal right lower lobe seg mental branches and left lower lobe segmental branches. Aorta: No aneurysm or dissection. Moderate atherosclerotic calcification. Cardiac: Heart size is within normal limits. There is straightening of the intraventricular septum an d prominence of the right ventricle suggesting a degree of right heart strain. Moderate coronary art kaylee calcification. Mediastinum/yary: No mass or adenopathy. Lungs: Respiratory motion artifact limits evaluation for subtle findings. There are scattered areas o f subsegmental atelectasis. Peripheral patchy opacity in the posterolateral aspect of the right lower lobe, possible infarct. No pneumothorax or pleural effusion. Chest wall: No mass or other abnormality. Upper abdomen: Moderate hiatal hernia. Bones: Chronic appearing compression fracture of the T11 vertebral body with up to 90% loss of height at its anterior aspect. Mild chronic appearing compression deformity of the superior endplate of the T3 vertebral body with up to 10% loss of height. IMPRESSION: 1. Bilateral pulmonary emboli as detailed above. 2. Findings suggesting a degree of right heart strain as described above. 3. Possible small pulmonary infarct in the right lower lobe. 4. Moderate hiatal hernia. 5. Additional findings as described above. Attempting to communicate the findings directly to the ordering provider through the [facility] radiology ca ll center. The report will be submitted pending communication of the critical findings.
--- NOTE | 2025-04-04 18:47 | DVHPN2 ---
Progress Note Date Seen: Apr 04, 2025 Medical Necessity Reason Pt with a Central, PICC or Fol: No Subjective Patient reports: No new complaints Changes from previous H/P or p: No Changes (Patient resting comfortably in bed. No apparent distress) Review of Systems: HEENT:Normal, CVS:Normal, RESPIRATORY:Normal, GI:Normal, :Normal, MSK:Normal, NEURO:Normal Objective vital signs Vital Sign Date Time Temp Pulse Resp B/P (MAP) Pulse Ox O2 Delivery O2 Flow Rate FiO2 04/04/25 17:00 97.8 93 16 140/79 (99) 98 97.8 04/04/25 08:00 Room Air* 0 21 Total Intake and Output 04/03/25 04/03/25 04/04/25 15:00 23:00 07:00 Intake Total 0 ml Balance 0 ml medications Current Medications Medications Dose Ordered Sig/Suellen Route Start Time Stop Time Status Last Admin Dose Admin Acetaminophen/ Hydrocodone Bitart 1 tab Q4HP PRN PO 04/03/25 08:15 Ondansetron HCl 4 mg Q4HP PRN IV 04/03/25 08:15 Docusate Sodium 100 mg BIDPRN PRN PO 04/03/25 08:15 Acetaminophen 650 mg Q6HP PRN PO 04/03/25 08:15 Nitroglycerin 0.4 mg Q5MINP PRN SL 04/03/25 08:15 Morphine Sulfate 2 mg Q30M PRN IV 04/03/25 08:15 Enoxaparin Sodium 60 mg Q12HR SC 04/04/25 04:00 04/04/25 10:56 60 MG laboratory and microbiology Laboratory Tests 04/04/25 08:09 Test 04/04/25 08:09 Range/Units Serum Glucose 91 74-106 mg/dL Microbiology Date/Time Source Procedure Growth Status 04/03/25 00:30 Blood Blood Culture - Preliminary NO GROWTH AFTER 24 HOURS OF INCUBATION. Resulted Labs and/or images reviewed: Labs reviewed by me, Image(s) reviewed by me Problem List/Assessment/Plan Problem List/Assessment/Plan Elevated troponin, R/O ACS, Anemia, Hypertension, NSTEMI Hypertension Dyslipidemia History of peptic ulcer disease Echo was done Cardiology recommendation appreciated CT angio shows bilateral PE with right heart strain Will transition to full-dose Lovenox for prior similar thrombectomy NPO after midnight F/u With Cardiology recommendation Plan discussed with: Patient My Orders My Orders Orders - PASTORA VALADEZ MD Procedure Category Date Status Time Cardiac DIET 04/04/25 Transmitted Diet-2gna,Lofat,Lochol Dinner Insert Stoll Catheter FERNANDO 04/04/25 In Process 14:34 Date of Service: Apr 04, 2025 Billing Provider: PASTORA VALADEZ MD Common Visit Codes: [id number] INP/OBS CARE(HIGH) PASTORA VALADEZ MD Apr 04, 2025 18:47
[2025-04-04] MEDS ORDERED: HEPARIN SODIUM (PORCINE) 5000 UNITS/ML 1ML VIAL IV ONE (19:00)
[2025-04-04 19:38] LABS: Hemoglobin 9.4 g/dL (12.2-16.2); Mean Corpuscular Volume 69.9 fL (80.0-100.0); Nucleated Red Blood Cells % 0.3 %
[2025-04-04 19:39] LABS: Hematocrit 30.8 % (36.0-46.0); Mean Corpuscular Hemoglobin 21.3 pg (28.0-32.0)
[2025-04-04 19:55] LABS: INR 1.05 (0.9-1.15); Partial Thromboplastin Time 33.6 SEC (24.5-34.5); Prothrombin Time 11.1 sec (9.3-11.8)
[2025-04-04] MEDS: HEPARIN DRIP/D5W 100UNITS/ML 250 ML IV SCH (21:02)
--- NOTE | 2025-04-04 23:20 | DVHPN2 ---
Consult Progress Note Subjective Patient reports: Feels better Other Systems: Patient was seen and evaluated in follow up. Patient reports improvement in SOB. HGB 8.6, HCT 27.9, CL 112, CA 8.5. Telemetry reviewed. Objective vital signs Vital Sign Date Time Temp Pulse Resp B/P (MAP) Pulse Ox O2 Delivery O2 Flow Rate FiO2 04/04/25 09:00 97.7 95 16 123/82 (96) 98 97.7 04/03/25 20:00 Room Air* 0 21 Total Intake and Output 04/03/25 04/03/25 04/04/25 15:00 23:00 07:00 Intake Total 0 ml Balance 0 ml medications Current Medications Medications Dose Ordered Sig/Suellen Route Start Time Stop Time Status Last Admin Dose Admin Acetaminophen/ Hydrocodone Bitart 1 tab Q4HP PRN PO 04/03/25 08:15 Ondansetron HCl 4 mg Q4HP PRN IV 04/03/25 08:15 Docusate Sodium 100 mg BIDPRN PRN PO 04/03/25 08:15 Acetaminophen 650 mg Q6HP PRN PO 04/03/25 08:15 Nitroglycerin 0.4 mg Q5MINP PRN SL 04/03/25 08:15 Morphine Sulfate 2 mg Q30M PRN IV 04/03/25 08:15 Enoxaparin Sodium 60 mg Q12HR SC 04/04/25 04:00 04/04/25 10:56 60 MG Examination: GENERAL:Normal, HEENT:Normal, NECK:Normal, LUNGS:Normal, CVS:Normal (Telemetry reviewed consistent with sinus rhythm at 94 beats per minute), ABDOMEN:Normal, MSK:Normal laboratory and microbiology Laboratory Tests 04/04/25 08:09 Test 04/04/25 08:09 Range/Units Serum Glucose 91 74-106 mg/dL Problem List/Assessment/Plan Problem List/Assessment/Plan Assessment NSTEMI. Rule out pulmonary embolism. Rule out structural heart disease. Hypertension. Dyslipidemia. History of peptic ulcer disease. Plan/Recommendation Continued all current supportive medical care. Patient has been seen by Jared Ferraro NP on my behalf, him and I discussed the plan with the patient. Follow up echo showing normal LVEF 65%, moderate degree of pulmonary hypertension with RVSP 50 mmHg, moderately dilated RV and RA normal function. At the time of assessment, the patient denies any cardiac symptoms. 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 D-dimer elevated. CTA pending to rule out pulmonary embolism. Continue therapeutic Lovenox in the meantime. Monitoring H&H, no overt signs of bleeding. No significant ST segment changes seen on twelve lead electrocardiogram. Further recommendations per clinical course and progression Additional plan as per the hospital course. Plan discussed with: Patient Date of Service: Apr 04, 2025 Billing Provider: LASHA VELÁZQUEZ MD Cardiology Common Codes: [id number] HOSP CARE(High LASHA VELÁZQUEZ MD Apr 04, 2025 12:56
[2025-04-05] VITALS (8 sets, daily range): BP systolic 116–147; BP diastolic 71–92; PULSE 83–104; RESP 15–17; TEMP 97.6–98.3; O2SAT 96–98
[2025-04-05 04:07] LABS: INR 1.08 (0.9-1.15); Prothrombin Time 11.4 sec (9.3-11.8)
[2025-04-05 04:11] LABS: Partial Thromboplastin Time 92.5 SEC (24.5-34.5)
[2025-04-05] MEDS ORDERED: HEPARIN DRIP/D5W 100UNITS/ML 250 ML IV SCH (05:13)
[2025-04-05] MEDS: HEPARIN DRIP/D5W 100UNITS/ML 250 ML IV SCH ×2 (05:23→13:19)
--- NOTE | 2025-04-05 10:41 | DVHPN2 ---
Consult Progress Note Subjective Patient reports: Feels better Objective vital signs Vital Sign Date Time Temp Pulse Resp B/P (MAP) Pulse Ox O2 Delivery O2 Flow Rate FiO2 04/05/25 08:56 97.7 91 16 133/84 (100) 96 97.7 04/05/25 08:00 Room Air* 0 21 Total Intake and Output 04/04/25 04/04/25 04/05/25 15:00 23:00 07:00 Intake Total 220 ml 477 ml 605.31 ml Output Total 450 ml Balance 220 ml 477 ml 155.31 ml medications Current Medications Medications Dose Ordered Sig/Suellen Route Start Time Stop Time Status Last Admin Dose Admin Acetaminophen/ Hydrocodone Bitart 1 tab Q4HP PRN PO 04/03/25 08:15 Ondansetron HCl 4 mg Q4HP PRN IV 04/03/25 08:15 Docusate Sodium 100 mg BIDPRN PRN PO 04/03/25 08:15 Acetaminophen 650 mg Q6HP PRN PO 04/03/25 08:15 Nitroglycerin 0.4 mg Q5MINP PRN SL 04/03/25 08:15 Morphine Sulfate 2 mg Q30M PRN IV 04/03/25 08:15 Heparin Sodium/ Dextrose 250 ml @ 7.5 mls/hr Q24H IV 04/05/25 05:13 04/05/25 05:23 7.5 MLS/HR Examination: LUNGS:Abnormal (On RA), CVS:Abnormal (Tele consistent with sinus rhythm at 88 bpm.) laboratory and microbiology Laboratory Tests 04/04/25 19:25 04/04/25 08:09 Test 04/04/25 08:09 Range/Units Serum Glucose 91 74-106 mg/dL Problem List/Assessment/Plan Problem List/Assessment/Plan Assessment NSTEMI Rule out structural heart disease Hypertension Dyslipidemia History of peptic ulcer disease Acute bilateral PE Bilateral DVT Plan/Recommendation We will continue with the following plan/recommendations (Dr. Bradley): Follow up echo showing normal LVEF 65%, moderate degree of pulmonary hypertension with RVSP 50 mmHg, moderately dilated RV and RA normal function. At the time of assessment, the patient denies any cardiac symptoms. 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 D-dimer elevated. CTA showing bilateral PE with evidence of RHS. Continue heparin drip. Recommend IR consult for possible thrombectomy. Plan transition to p.o. DOAC with Eliquis 10 mg twice daily x7 days followed by 5 mg p.o. twice daily. Monitoring H&H, no overt signs of bleeding. No significant ST segment changes seen on twelve lead electrocardiogram. Further recommendations per clinical course and progression. Thank you for allowing us to care for this patient. Please call with any questions or concerns. Critical care time spent: 40 minutes This medical document was created using an electronic medical record system with voice recognition software and computerized dictation system. Although this document has been carefully reviewed, there might still be some phonetic and typographical errors. Occasional wrong-word or ``sound-alike substitutions may have occurred due to the inherent limitations of voice recognition software. These areas are purely typographical due to imperfections of the software programs and do not reflect any compromise in the patient's medical care. Please read the chart carefully and recognize, using context, where these substitutions have occurred. Plan discussed with: Patient Date of Service: Apr 05, 2025 Billing Provider: TAPAN BECK Common Visit Codes: [id number] INP/OBS CARE(HIGH) TAPAN BECK Apr 05, 2025 10:41
[2025-04-05] MEDS: MORPHINE SULFATE INJ 2 MG/ml SYRG IV PRN (12:12)
[2025-04-05 12:38] LABS: Hematocrit 33.1 % (36.0-46.0); Hemoglobin 10.1 g/dL (12.2-16.2); Mean Corpuscular Hemoglobin 21.3 pg (28.0-32.0); Mean Corpuscular Volume 69.6 fL (80.0-100.0); Nucleated Red Blood Cells % 0.2 %
[2025-04-05 12:39] LABS: INR 1.04 (0.9-1.15); Partial Thromboplastin Time 48.1 SEC (24.5-34.5); Prothrombin Time 11.0 sec (9.3-11.8)
--- NOTE | 2025-04-05 13:05 | CONS ---
Pharmacy Clinical Information: APTT = 48.1 HEPARIN DRIP RATE WAS INITIALLY INCORRECT PER PROTOCOL; INCREASE RATE TO 900 UNITS/HR NEXT APTT DRAW SCHEDULED FOR 1900 PER RX PROTOCOL KAYLYNN ROWE PHARMACIST Apr 05, 2025 13:05
[2025-04-05 13:14] LABS: Alanine Aminotransferase 24 U/L (7-40); Albumin 3.9 g/dL (3.2-4.8); Alkaline Phosphatase 83 U/L (46-116); Anion Gap 11 (5-15); BUN/Creatinine Ratio 15.1 (10.0-20.0); Blood Urea Nitrogen 11 mg/dL (9-23); Calcium 8.7 mg/dL (8.7-10.4); Potassium 3.8 mmol/L (3.5-5.1); Sodium 139 mmol/L (136-145); Total Protein 6.7 g/dL (5.7-8.2)
[2025-04-05 13:19] LABS: Bilirubin, Total 0.3 mg/dL (0.2-1.0); Carbon Dioxide 19 mmol/L (20-31); Chloride 109 mmol/L (98-107); Glucose 170 mg/dL (74-106)
--- NOTE | 2025-04-05 15:39 | DVHPN2 ---
Progress Note Date Seen: Apr 05, 2025 Medical Necessity Reason Pt with a Central, PICC or Fol: No Subjective Patient reports: No new complaints Changes from previous H/P or p: No Changes Objective vital signs Vital Sign Date Time Temp Pulse Resp B/P (MAP) Pulse Ox O2 Delivery O2 Flow Rate FiO2 04/05/25 13:00 97.9 100 16 116/74 (88) 98 97.9 04/05/25 08:00 Room Air* 0 21 Total Intake and Output 04/04/25 04/04/25 04/05/25 15:00 23:00 07:00 Intake Total 220 ml 477 ml 605.31 ml Output Total 450 ml Balance 220 ml 477 ml 155.31 ml medications Current Medications Medications Dose Ordered Sig/Suellen Route Start Time Stop Time Status Last Admin Dose Admin Acetaminophen/ Hydrocodone Bitart 1 tab Q4HP PRN PO 04/03/25 08:15 Hold Ondansetron HCl 4 mg Q4HP PRN IV 04/03/25 08:15 Docusate Sodium 100 mg BIDPRN PRN PO 04/03/25 08:15 Acetaminophen 650 mg Q6HP PRN PO 04/03/25 08:15 Nitroglycerin 0.4 mg Q5MINP PRN SL 04/03/25 08:15 Morphine Sulfate 2 mg Q30M PRN IV 04/03/25 08:15 Morphine Sulfate 1 mg Q8HP PRN IV 04/05/25 11:30 04/05/25 12:12 1 MG Heparin Sodium/ Dextrose 250 ml @ 9 mls/hr Q24H IV 04/05/25 13:15 04/05/25 13:19 9 MLS/HR Examination Generally-71 years old woman, well nourished well developed. No apparent distress HEENT-atraumatic normocephalic Heart-regular rate and rhythm Lungs clear to auscultate Abdomen soft nontender nondistended Musculoskeletal-no edema cyanosis Neuro-AO x3, no focal deficits laboratory and microbiology Laboratory Tests 04/05/25 12:20 04/05/25 11:30 Test 04/05/25 12:20 Range/Units Serum Glucose 170 H 74-106 mg/dL Microbiology Date/Time Source Procedure Growth Status 04/03/25 00:30 Blood Blood Culture - Preliminary NO GROWTH AFTER 48 HOURS OF INCUBATION. Resulted Problem List/Assessment/Plan Problem List/Assessment/Plan Elevated troponin, R/O ACS, Anemia, Hypertension, NSTEMI Hypertension Dyslipidemia History of peptic ulcer disease Echo was normal EF Cardiology recommendation appreciated CT angio shows bilateral PE with right heart strain heparin ggt for possible thrombectomy NPO after midnight F/u With Cardiology recommendation Radiology consult for thrombectomy when stable, DC with PO eliquis 10mg bid for 7 days and 5 mg po bid Plan discussed with: Patient, Daughter, Son My Orders My Orders Orders - PASTORA VALADEZ MD Procedure Category Date Status Time Npo (Nothing By DIET 04/05/25 Transmitted Mouth) Diet Breakfast Platelet Monitoring [facility] 04/04/25 In Process 18:55 Vte Protocol Initiated [facility] 04/04/25 In Process 18:55 Heparin Per [facility] 04/04/25 In Process Standardized Proce 18:55 Discontinue All Im [facility] 04/04/25 In Process Injections 18:55 Heparin Protocol [facility] 04/04/25 In Process 20:36 Complete Blood Count LAB 04/06/25 Verified 04:00 Complete Blood Count LAB 04/06/25 Verified 05:00 Complete Blood Count LAB 04/07/25 Verified 05:00 Complete Blood Count LAB 04/08/25 Verified 05:00 Complete Blood Count LAB 04/09/25 Verified 05:00 Complete Blood Count LAB 04/10/25 Verified 05:00 Comprehensive LAB 04/06/25 Verified Metabolic Panel 05:00 Comprehensive LAB 04/07/25 Verified Metabolic Panel 05:00 Comprehensive LAB 04/08/25 Verified Metabolic Panel 05:00 Comprehensive LAB 04/09/25 Verified Metabolic Panel 05:00 Comprehensive LAB 04/10/25 Verified Metabolic Panel 05:00 Morphine Sulfate PHA 04/05/25 In Process Injection 11:30 Heparin Drip/D5w PHA 04/05/25 In Process 100units/Ml 13:15 PTPTT LAB 04/05/25 Logged 19:00 Heparin Per Pharmacy [facility] 04/05/25 In Process Protocol 13:02 * Radiologist Consult CONS 04/05/25 Transmitted 15:33 Dietary Evaluation Review Comments: 1) If patient remains NPO > 7 days, consider EN/TPN to meet at least 75% estimated daily needs 2) Advance to cardiac diet when medically feasible 3) Follow-up with cardiology 4) Continue to monitor I&O, labs, and skin integrity Expected Outcomes/Goals: 1) patient to receive nutritional support within 7 days of NPO status 2) diet to advance 3) labs to improve 4) f/u in 3-5 days Date of Service: Apr 05, 2025 Billing Provider: PASTORA VALADEZ MD Common Visit Codes: [id number] INP/OBS CARE(HIGH) PASTORA VALADEZ MD Apr 05, 2025 15:39
[2025-04-05 19:53] LABS: INR 1.03 (0.9-1.15); Partial Thromboplastin Time 65.8 SEC (24.5-34.5); Prothrombin Time 10.9 sec (9.3-11.8)
--- NOTE | 2025-04-05 22:48 | DVHPN2 ---
Consult Progress Note Subjective Patient reports: Feels better Other Systems: Patient was seen and evaluated in follow up. Patient complains of generalized pain. Telemetry reviewed. Objective vital signs Vital Sign Date Time Temp Pulse Resp B/P (MAP) Pulse Ox O2 Delivery O2 Flow Rate FiO2 04/05/25 13:00 97.9 100 16 116/74 (88) 98 97.9 04/05/25 08:00 Room Air* 0 21 Total Intake and Output 04/04/25 04/04/25 04/05/25 15:00 23:00 07:00 Intake Total 220 ml 477 ml 605.31 ml Output Total 450 ml Balance 220 ml 477 ml 155.31 ml medications Current Medications Medications Dose Ordered Sig/Suellen Route Start Time Stop Time Status Last Admin Dose Admin Acetaminophen/ Hydrocodone Bitart 1 tab Q4HP PRN PO 04/03/25 08:15 Hold Ondansetron HCl 4 mg Q4HP PRN IV 04/03/25 08:15 Docusate Sodium 100 mg BIDPRN PRN PO 04/03/25 08:15 Acetaminophen 650 mg Q6HP PRN PO 04/03/25 08:15 Nitroglycerin 0.4 mg Q5MINP PRN SL 04/03/25 08:15 Morphine Sulfate 2 mg Q30M PRN IV 04/03/25 08:15 Morphine Sulfate 1 mg Q8HP PRN IV 04/05/25 11:30 04/05/25 12:12 1 MG Heparin Sodium/ Dextrose 250 ml @ 9 mls/hr Q24H IV 04/05/25 13:15 04/05/25 13:19 9 MLS/HR Examination: LUNGS:Abnormal (On RA), CVS:Abnormal (Tele consistent with sinus rhythm at 88 bpm) laboratory and microbiology Laboratory Tests 04/05/25 12:20 04/05/25 11:30 Test 04/05/25 12:20 Range/Units Serum Glucose 170 H 74-106 mg/dL Problem List/Assessment/Plan Problem List/Assessment/Plan Assessment NSTEMI. Rule out structural heart disease. Hypertension. Dyslipidemia. History of peptic ulcer disease. Acute bilateral PE. Bilateral DVT. Plan/Recommendation Continued all current supportive medical care. Patient has been seen by Jared Ferraro NP on my behalf, him and I discussed the plan with the patient. Follow up echo showing normal LVEF 65%, moderate degree of pulmonary hypertension with RVSP 50 mmHg, moderately dilated RV and RA normal function. At the time of assessment, the patient denies any cardiac symptoms. 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 D-dimer elevated. CTA showing bilateral PE with evidence of RHS. Continue heparin drip. Recommend IR consult for possible thrombectomy. Plan transition to p.o. DOAC with Eliquis 10 mg twice daily x7 days followed by 5 mg p.o. twice daily. Monitoring H&H, no overt signs of bleeding. No significant ST segment changes seen on twelve lead electrocardiogram. Further recommendations per clinical course and progression. Additional plan as per the hospital course. Plan discussed with: Patient Dietary Evaluation Review Comments: 1) If patient remains NPO > 7 days, consider EN/TPN to meet at least 75% estimated daily needs 2) Advance to cardiac diet when medically feasible 3) Follow-up with cardiology 4) Continue to monitor I&O, labs, and skin integrity Expected Outcomes/Goals: 1) patient to receive nutritional support within 7 days of NPO status 2) diet to advance 3) labs to improve 4) f/u in 3-5 days Date of Service: Apr 05, 2025 Billing Provider: LASHA VELÁZQUEZ MD Cardiology Common Codes: [id number] [id number] CARE(High LASHA VELÁZQUEZ MD Apr 05, 2025 14:54
[2025-04-06] VITALS (8 sets, daily range): BP systolic 110–132; BP diastolic 70–81; PULSE 78–94; RESP 15–18; TEMP 97.3–98.5; O2SAT 96–98
[2025-04-06 05:31] LABS: Nucleated Red Blood Cells % 0.1 %
[2025-04-06 05:33] LABS: Hematocrit 26.2 % (36.0-46.0); Hemoglobin 8.5 g/dL (12.2-16.2); Mean Corpuscular Hemoglobin 21.5 pg (28.0-32.0); Mean Corpuscular Volume 66.6 fL (80.0-100.0)
[2025-04-06 05:49] LABS: Alanine Aminotransferase 17 U/L (7-40); Albumin 3.5 g/dL (3.2-4.8); Alkaline Phosphatase 73 U/L (46-116); Anion Gap 10 (5-15); BUN/Creatinine Ratio 14.1 (10.0-20.0); Bilirubin, Total 0.3 mg/dL (0.2-1.0); Carbon Dioxide 21 mmol/L (20-31); Glucose 94 mg/dL (74-106); Potassium 3.7 mmol/L (3.5-5.1); Sodium 140 mmol/L (136-145); Total Protein 6.0 g/dL (5.7-8.2)
[2025-04-06 05:55] LABS: INR 1.06 (0.9-1.15); Partial Thromboplastin Time 55.0 SEC (24.5-34.5); Prothrombin Time 11.2 sec (9.3-11.8)
[2025-04-06 06:03] LABS: Blood Urea Nitrogen 9 mg/dL (9-23); Calcium 8.5 mg/dL (8.7-10.4); Chloride 109 mmol/L (98-107)
[2025-04-06] MEDS ORDERED: MORPHINE SULFATE INJ 2 MG/ml SYRG IV PRN (12:00)
[2025-04-06 13:12] LABS: INR 1.08 (0.9-1.15); Prothrombin Time 11.4 sec (9.3-11.8)
[2025-04-06] MEDS: ACETAMINOPHEN 325 MG TAB PO PRN (13:22)
[2025-04-06 13:26] LABS: Partial Thromboplastin Time 83.7 SEC (24.5-34.5)
--- NOTE | 2025-04-06 13:39 | CONS ---
Pharmacy Clinical Information: HEPARIN DRIP, DVT PROTOCOL @12:05 APTT 83.7 - NO BOLUS, DECREASE HEPARIN DRIP RATE TO 700 UNITS/HR NEXT APTT DRAW SCHEDULED @1930 PER RX PROTOCOL CONFIRMED AND READ BACK WITH [facility] Apr 06, 2025 13:39
[2025-04-06] MEDS: HEPARIN DRIP/D5W 100UNITS/ML 250 ML IV SCH (13:40)
--- NOTE | 2025-04-06 14:23 | DVHPN2 ---
Reviewed: Care Plan, H&P, Labs, Medications, Previous Orders, Radiology Changes from previous H/P or p: No Changes Eyes: No Pain, No Vision change, No Conjunctivae inflammation, No Eyelid inflammation, No Other, No Redness ENT: No Ear pain, No Ear discharge, No Nose pain, No Nose discharge, No Nose congestion, No Mouth pain, No Mouth swelling, No Throat pain, No Throat swelling, No Other Cardiovascular: No Chest Pain, No Palpitations, No Orthopnea, No Paroxysmal Noc. Dyspnea, No Edema, No Lt Headedness, No Other Respiratory: No Cough, No Dry; Shortness of breath; No SOB with excertion, No Wheezing, No Hemoptysis, No Pleuritic Pain, No Sputum, No Other Gastrointestinal: No Nausea, No Vomiting, No Abdominal Pain, No Diarrhea, No Constipation, No Melena, No Hematochezia, No Other Genitourinary: No Dysuria, No Frequency, No Incontinence, No Hematuria, No Retention, No Other Musculoskeletal: No other, No neck pain, No shoulder pain, No arm pain, No back pain, No hand pain, No leg pain, No foot pain Skin: No Rash, No Lesions, No Jaundice, No Bruising, No Other Objective Vitals Vital Signs Date Time Temp Pulse Resp B/P (MAP) Pulse Ox O2 Delivery O2 Flow Rate FiO2 04/06/25 09:00 98.5 84 16 132/70 (90) 96 98.5 04/06/25 08:00 Room Air* 0 21 Intake/Output Intake and Output 04/06/25 07:00 Intake Total 1190 ml Output Total 675 ml Balance 515 ml Intake Oral 1190 ml Output Urine Total 675 ml Medications Current Medications Medications Dose Ordered Sig/Suellen Route Start Time Stop Time Status Last Admin Dose Admin Acetaminophen/ Hydrocodone Bitart 1 tab Q4HP PRN PO 04/03/25 08:15 Ondansetron HCl 4 mg Q4HP PRN IV 04/03/25 08:15 Docusate Sodium 100 mg BIDPRN PRN PO 04/03/25 08:15 Acetaminophen 650 mg Q6HP PRN PO 04/03/25 08:15 04/06/25 13:22 650 MG Nitroglycerin 0.4 mg Q5MINP PRN SL 04/03/25 08:15 Morphine Sulfate 2 mg Q30M PRN IV 04/03/25 08:15 Morphine Sulfate 1 mg Q8HP PRN IV 04/06/25 12:00 Heparin Sodium/ Dextrose 250 ml @ 7 mls/hr Q24H IV 04/06/25 13:45 04/06/25 13:40 7 MLS/HR Laboratory Results Laboratory Tests 04/06/25 04:30 Chemistry Test 04/06/25 04:30 Albumin 3.5 g/dL (3.2-4.8) Calcium Level 8.5 mg/dL (8.7-10.4) L Total Protein 6.0 g/dL (5.7-8.2) Coagulation Test 04/05/25 18:55 04/06/25 04:30 04/06/25 12:05 Prothrombin Time 10.9 sec (9.3-11.8) 11.2 sec (9.3-11.8) 11.4 sec (9.3-11.8) Prothrombin Time INR 1.03 (0.9-1.15) 1.06 (0.9-1.15) 1.08 (0.9-1.15) Activated Partial Thromboplast Time 65.8 SEC (24.5-34.5) H 55.0 SEC (24.5-34.5) H 83.7 SEC (24.5-34.5) *H LFT Test 04/06/25 04:30 Alanine Aminotransferase (ALT) 17 U/L (7-40) Alkaline Phosphatase 73 U/L (46-116) Aspartate Amino Transferase (AST) 20 U/L (13-40) Total Bilirubin 0.3 mg/dL (0.2-1.0) Microbiology Microbiology Date/Time Source Procedure Growth Status 04/03/25 00:30 Blood Blood Culture - Preliminary NO GROWTH AFTER 72 HOURS OF INCUBATION. Resulted Labs and/or images reviewed: Labs reviewed by me, Image(s) reviewed by me Assessment/Plan Assessment/Plan NSTEMI. Rule out structural heart disease. Hypertension. Dyslipidemia. History of peptic ulcer disease. Acute bilateral PE.: Continue heparin drip, Radiology consult for thrombectomy Bilateral DVT. Plan discussed with: Patient Date of Service: Apr 06, 2025 Billing Provider: TAVON CANSECO MD Common Visit Codes: [id number] INP/OBS CARE(HIGH) TAVON CANSECO MD Apr 06, 2025 14:23
[2025-04-06 21:09] LABS: INR 1.03 (0.9-1.15); Partial Thromboplastin Time 54.7 SEC (24.5-34.5); Prothrombin Time 10.9 sec (9.3-11.8)
--- NOTE | 2025-04-06 23:34 | DVHPN2 ---
Progress Note - Dictate Date Seen: Apr 06, 2025 Medical Necessity Reason Pt with a Central, PICC or Fol: No Subjective Patient was seen and evaluated in follow up. No overnight events. Patient denies any complaints. HGB 8.5, HCT 26.2. Telemetry reviewed. vital signs Vital Sign Date Time Temp Pulse Resp B/P (MAP) Pulse Ox O2 Delivery O2 Flow Rate FiO2 04/06/25 21:00 98.2 88 17 119/73 (88) 96 98.2 04/06/25 20:10 Room Air* 0 21 Total Intake and Output 04/05/25 04/05/25 04/06/25 15:00 23:00 07:00 Intake Total 595 ml 595 ml Output Total 375 ml 300 ml Balance 220 ml 295 ml medications Current Medications Medications Dose Ordered Sig/Suellen Route Start Time Stop Time Status Last Admin Dose Admin Acetaminophen/ Hydrocodone Bitart 1 tab Q4HP PRN PO 04/03/25 08:15 Ondansetron HCl 4 mg Q4HP PRN IV 04/03/25 08:15 Docusate Sodium 100 mg BIDPRN PRN PO 04/03/25 08:15 Acetaminophen 650 mg Q6HP PRN PO 04/03/25 08:15 04/06/25 13:22 650 MG Nitroglycerin 0.4 mg Q5MINP PRN SL 04/03/25 08:15 Morphine Sulfate 2 mg Q30M PRN IV 04/03/25 08:15 Morphine Sulfate 1 mg Q8HP PRN IV 04/06/25 12:00 Heparin Sodium/ Dextrose 250 ml @ 7 mls/hr Q24H IV 04/06/25 13:45 04/06/25 13:40 7 MLS/HR laboratory and microbiology Laboratory Tests 04/06/25 04:30 Test 04/06/25 04:30 Range/Units Serum Glucose 94 74-106 mg/dL Problem List NSTEMI. Rule out structural heart disease. Hypertension. Dyslipidemia. History of peptic ulcer disease. Acute bilateral PE. Bilateral DVT. Assessment/Plan Continued all current supportive medical care. Follow up echo showing normal LVEF 65%, moderate degree of pulmonary hypertension with RVSP 50 mmHg, moderately dilated RV and RA normal function. Morphine and [place] for pain management. Heparin drip per pharmacy. Nitro SL. Additional plan as per the hospital course. Dietary Evaluation Review Comments: 1) If patient remains NPO > 7 days, consider EN/TPN to meet at least 75% estimated daily needs 2) Advance to cardiac diet when medically feasible 3) Follow-up with cardiology 4) Continue to monitor I&O, labs, and skin integrity Expected Outcomes/Goals: 1) patient to receive nutritional support within 7 days of NPO status 2) diet to advance 3) labs to improve 4) f/u in 3-5 days Plan discussed with: Patient LASHA VELÁZQUEZ MD Apr 06, 2025 23:34
[2025-04-07] VITALS (8 sets, daily range): BP systolic 128–139; BP diastolic 65–83; PULSE 77–88; RESP 16–18; TEMP 97.8–98.8; O2SAT 95–98
[2025-04-07 03:32] LABS: Hemoglobin 8.2 g/dL (12.2-16.2); Nucleated Red Blood Cells % 0.1 %
[2025-04-07 03:40] LABS: Hematocrit 26.2 % (36.0-46.0); Mean Corpuscular Hemoglobin 21.1 pg (28.0-32.0); Mean Corpuscular Volume 67.1 fL (80.0-100.0)
[2025-04-07 03:45] LABS: Alanine Aminotransferase 17 U/L (7-40); Albumin 3.5 g/dL (3.2-4.8); Alkaline Phosphatase 71 U/L (46-116); Anion Gap 10 (5-15); BUN/Creatinine Ratio 18.3 (10.0-20.0); Blood Urea Nitrogen 11 mg/dL (9-23); Carbon Dioxide 21 mmol/L (20-31); Glucose 105 mg/dL (74-106); Potassium 4.0 mmol/L (3.5-5.1); Sodium 140 mmol/L (136-145); Total Protein 5.9 g/dL (5.7-8.2)
[2025-04-07 03:48] LABS: Bilirubin, Total 0.2 mg/dL (0.2-1.0); Calcium 8.4 mg/dL (8.7-10.4); Chloride 109 mmol/L (98-107)
[2025-04-07 03:49] LABS: INR 1.05 (0.9-1.15); Partial Thromboplastin Time 46.4 SEC (24.5-34.5); Prothrombin Time 11.1 sec (9.3-11.8)
[2025-04-07] MEDS ORDERED: HEPARIN DRIP/D5W 100UNITS/ML 250 ML IV SCH (04:15)
[2025-04-07 10:30] LABS: INR 1.06 (0.9-1.15); Partial Thromboplastin Time 44.9 SEC (24.5-34.5); Prothrombin Time 11.2 sec (9.3-11.8)
--- NOTE | 2025-04-07 11:14 | CONS ---
Pharmacy Clinical Information: HEPARIN DRIP, DVT PROTOCOL @09:51 APTT 44.9 - NORMALLY, WOULD INCREASE BY 200 UNITS/HR PER RX PROTOCOL PER RN, PATIENT SELF REMOVED IV LINE FOR ABOUT AN HOUR @11:10, IS LINE IS NOW BACK ON, WILL RESUME PREVIOUS RATE AT 900 UNITS/HR NEXT APTT DRAW SCHEDULED @1730 CONFIRMED AND READ BACK WITH TIM CONKLIN,[facility] RESIDENT Apr 07, 2025 11:14
--- NOTE | 2025-04-07 11:28 | DVHPN2 ---
Reviewed: Care Plan, H&P, Labs, Medications, Previous Orders, Radiology Changes from previous H/P or p: No Changes Eyes: No Pain, No Vision change, No Conjunctivae inflammation, No Eyelid inflammation, No Other, No Redness ENT: No Ear pain, No Ear discharge, No Nose pain, No Nose discharge, No Nose congestion, No Mouth pain, No Mouth swelling, No Throat pain, No Throat swelling, No Other Cardiovascular: No Chest Pain, No Palpitations, No Orthopnea, No Paroxysmal Noc. Dyspnea, No Edema, No Lt Headedness, No Other Respiratory: No Cough, No Dry; Shortness of breath; No SOB with excertion, No Wheezing, No Hemoptysis, No Pleuritic Pain, No Sputum, No Other Gastrointestinal: No Nausea, No Vomiting, No Abdominal Pain, No Diarrhea, No Constipation, No Melena, No Hematochezia, No Other Genitourinary: No Dysuria, No Frequency, No Incontinence, No Hematuria, No Retention, No Other Musculoskeletal: No other, No neck pain, No shoulder pain, No arm pain, No back pain, No hand pain, No leg pain, No foot pain Skin: No Rash, No Lesions, No Jaundice, No Bruising, No Other Objective Vitals Vital Signs Date Time Temp Pulse Resp B/P (MAP) Pulse Ox O2 Delivery O2 Flow Rate FiO2 04/07/25 09:05 98.8 77 18 128/73 (91) 95 98.8 04/07/25 08:00 Room Air* 0 21 Intake/Output Intake and Output 04/07/25 07:00 Intake Total 477 ml Balance 477 ml Intake Oral 477 ml # Voids 4 Medications Current Medications Medications Dose Ordered Sig/Suellen Route Start Time Stop Time Status Last Admin Dose Admin Acetaminophen/ Hydrocodone Bitart 1 tab Q4HP PRN PO 04/03/25 08:15 Ondansetron HCl 4 mg Q4HP PRN IV 04/03/25 08:15 Docusate Sodium 100 mg BIDPRN PRN PO 04/03/25 08:15 Acetaminophen 650 mg Q6HP PRN PO 04/03/25 08:15 04/06/25 13:22 650 MG Nitroglycerin 0.4 mg Q5MINP PRN SL 04/03/25 08:15 Morphine Sulfate 2 mg Q30M PRN IV 04/03/25 08:15 Morphine Sulfate 1 mg Q8HP PRN IV 04/06/25 12:00 Heparin Sodium/ Dextrose 250 ml @ 9 mls/hr Q24H IV 04/07/25 04:15 Laboratory Results Laboratory Tests 04/07/25 02:36 Chemistry Test 04/07/25 02:36 Albumin 3.5 g/dL (3.2-4.8) Calcium Level 8.4 mg/dL (8.7-10.4) L Total Protein 5.9 g/dL (5.7-8.2) Coagulation Test 04/06/25 12:05 04/06/25 20:44 04/07/25 02:36 04/07/25 09:51 Prothrombin Time 11.4 sec (9.3-11.8) 10.9 sec (9.3-11.8) 11.1 sec (9.3-11.8) 11.2 sec (9.3-11.8) Prothrombin Time INR 1.08 (0.9-1.15) 1.03 (0.9-1.15) 1.05 (0.9-1.15) 1.06 (0.9-1.15) Activated Partial Thromboplast Time 83.7 SEC (24.5-34.5) *H 54.7 SEC (24.5-34.5) H 46.4 SEC (24.5-34.5) H 44.9 SEC (24.5-34.5) H LFT Test 04/07/25 02:36 Alanine Aminotransferase (ALT) 17 U/L (7-40) Alkaline Phosphatase 71 U/L (46-116) Aspartate Amino Transferase (AST) 27 U/L (13-40) Total Bilirubin 0.2 mg/dL (0.2-1.0) Microbiology Microbiology Date/Time Source Procedure Growth Status 04/03/25 00:30 Blood Blood Culture - Preliminary NO GROWTH AFTER 72 HOURS OF INCUBATION. Resulted Labs and/or images reviewed: Labs reviewed by me, Image(s) reviewed by me Assessment/Plan Assessment/Plan NSTEMI. Rule out structural heart disease. Consult by Dr. Abdirahman Bradley appreciated Hypertension. Dyslipidemia. History of peptic ulcer disease. Acute bilateral PE.: Continue heparin drip, Radiology consult for thrombectomy family refused thrombectomy Bilateral DVT. Plan discussed with: Patient My Orders Orders - TAVON CANSECO MD Procedure Category Date Status Time Cardiac DIET 04/06/25 Transmitted Diet-2gna,Lofat,Lochol Dinner Date of Service: Apr 07, 2025 Billing Provider: TAVON CANSECO MD Common Visit Codes: [id number] INP/OBS CARE(HIGH) TAVON CANSECO MD Apr 07, 2025 11:28
[2025-04-07 17:59] LABS: INR 1.04 (0.9-1.15); Partial Thromboplastin Time 59.3 SEC (24.5-34.5); Prothrombin Time 11.0 sec (9.3-11.8)
--- NOTE | 2025-04-07 18:32 | CONS ---
Pharmacy Clinical Information: HEPARIN DRIP, DVT PROTOCOL @17:29 APTT 59.3 - NO BOLUS/NO CHANGE CONTINUE HEPARIN DRIP AT RATE 900 UNITS/HR NEXT APTT DRAW SCHEDULED @2330 CONFIRMED AND READ BACK WITH [facility] Apr 07, 2025 18:32
--- NOTE | 2025-04-07 22:29 | DVHPN2 ---
Progress Note - Dictate Date Seen: Apr 07, 2025 Medical Necessity Reason Pt with a Central, PICC or Fol: No Subjective Patient was seen and evaluated in follow up. The patient is resting in bed. Patient denies any complaints. HGB 8.2, HCT 26.2. Patient is on heparin drip. Telemetry reviewed. vital signs Vital Sign Date Time Temp Pulse Resp B/P (MAP) Pulse Ox O2 Delivery O2 Flow Rate FiO2 04/07/25 20:00 88 04/07/25 20:00 16 98 Room Air* 0 21 04/07/25 17:16 98.0 131/75 (93) 98.0 Total Intake and Output 04/06/25 04/06/25 04/07/25 15:00 23:00 07:00 Intake Total 0 ml 477 ml 0 ml Balance 0 ml 477 ml 0 ml medications Current Medications Medications Dose Ordered Sig/Suellen Route Start Time Stop Time Status Last Admin Dose Admin Acetaminophen/ Hydrocodone Bitart 1 tab Q4HP PRN PO 04/03/25 08:15 Ondansetron HCl 4 mg Q4HP PRN IV 04/03/25 08:15 Docusate Sodium 100 mg BIDPRN PRN PO 04/03/25 08:15 Acetaminophen 650 mg Q6HP PRN PO 04/03/25 08:15 04/06/25 13:22 650 MG Nitroglycerin 0.4 mg Q5MINP PRN SL 04/03/25 08:15 Morphine Sulfate 2 mg Q30M PRN IV 04/03/25 08:15 Morphine Sulfate 1 mg Q8HP PRN IV 04/06/25 12:00 Heparin Sodium/ Dextrose 250 ml @ 9 mls/hr Q24H IV 04/07/25 04:15 laboratory and microbiology Laboratory Tests 04/07/25 02:36 Test 04/07/25 02:36 Range/Units Serum Glucose 105 74-106 mg/dL Problem List NSTEMI. Rule out structural heart disease. Hypertension. Dyslipidemia. History of peptic ulcer disease. Acute bilateral PE. Bilateral DVT. Assessment/Plan Continued all current supportive medical care. Morphine and [place] for pain management. Heparin drip per pharmacy. Nitro SL. Additional plan as per the hospital course. Dietary Evaluation Review Comments: 1) If patient remains NPO > 7 days, consider EN/TPN to meet at least 75% estimated daily needs 2) Advance to cardiac diet when medically feasible 3) Follow-up with cardiology 4) Continue to monitor I&O, labs, and skin integrity Expected Outcomes/Goals: 1) patient to receive nutritional support within 7 days of NPO status 2) diet to advance 3) labs to improve 4) f/u in 3-5 days Plan discussed with: Patient LASHA VELÁZQUEZ MD Apr 07, 2025 22:29
[2025-04-08] VITALS (9 sets, daily range): BP systolic 115–143; BP diastolic 69–87; PULSE 65–85; RESP 16–18; TEMP 97.8–98.6; O2SAT 94–98
[2025-04-08 00:06] LABS: INR 1.04 (0.9-1.15); Partial Thromboplastin Time 56.6 SEC (24.5-34.5); Prothrombin Time 11.0 sec (9.3-11.8)
[2025-04-08 06:26] LABS: Hematocrit 25.7 % (36.0-46.0); Hemoglobin 8.2 g/dL (12.2-16.2); Mean Corpuscular Hemoglobin 21.1 pg (28.0-32.0); Mean Corpuscular Volume 65.9 fL (80.0-100.0); Nucleated Red Blood Cells % 0.1 %
[2025-04-08 06:47] LABS: Alanine Aminotransferase 16 U/L (7-40); Albumin 3.5 g/dL (3.2-4.8); Alkaline Phosphatase 64 U/L (46-116); Anion Gap 10 (5-15); BUN/Creatinine Ratio 15.8 (10.0-20.0); Bilirubin, Total 0.3 mg/dL (0.2-1.0); Blood Urea Nitrogen 9 mg/dL (9-23); Carbon Dioxide 21 mmol/L (20-31); Glucose 89 mg/dL (74-106); Potassium 3.6 mmol/L (3.5-5.1); Sodium 141 mmol/L (136-145); Total Protein 5.9 g/dL (5.7-8.2)
[2025-04-08 06:48] LABS: Calcium 8.5 mg/dL (8.7-10.4); Chloride 110 mmol/L (98-107)
[2025-04-08 06:58] LABS: INR 1.06 (0.9-1.15); Prothrombin Time 11.2 sec (9.3-11.8)
[2025-04-08 07:00] LABS: Partial Thromboplastin Time 101.6 SEC (24.5-34.5)
[2025-04-08] MEDS: HEPARIN DRIP/D5W 100UNITS/ML 250 ML IV SCH ×3 (08:24→22:45)
--- NOTE | 2025-04-08 13:47 | DVHPN2 ---
Reviewed: Care Plan, H&P, Labs, Medications, Previous Orders, Radiology Changes from previous H/P or p: No Changes Eyes: No Pain, No Vision change, No Conjunctivae inflammation, No Eyelid inflammation, No Other, No Redness ENT: No Ear pain, No Ear discharge, No Nose pain, No Nose discharge, No Nose congestion, No Mouth pain, No Mouth swelling, No Throat pain, No Throat swelling, No Other Cardiovascular: No Chest Pain, No Palpitations, No Orthopnea, No Paroxysmal Noc. Dyspnea, No Edema, No Lt Headedness, No Other Respiratory: No Cough, No Dry; Shortness of breath; No SOB with excertion, No Wheezing, No Hemoptysis, No Pleuritic Pain, No Sputum, No Other Gastrointestinal: No Nausea, No Vomiting, No Abdominal Pain, No Diarrhea, No Constipation, No Melena, No Hematochezia, No Other Genitourinary: No Dysuria, No Frequency, No Incontinence, No Hematuria, No Retention, No Other Musculoskeletal: No other, No neck pain, No shoulder pain, No arm pain, No back pain, No hand pain, No leg pain, No foot pain Skin: No Rash, No Lesions, No Jaundice, No Bruising, No Other Objective Vitals Vital Signs Date Time Temp Pulse Resp B/P (MAP) Pulse Ox O2 Delivery O2 Flow Rate FiO2 04/08/25 09:15 98.3 67 17 139/87 (104) 96 98.3 04/08/25 08:00 Room Air* 0 21 Intake/Output Intake and Output 04/08/25 07:00 Intake Total 977 ml Balance 977 ml Intake Oral 977 ml # Voids 3 # Bowel Movements 1 Medications Current Medications Medications Dose Ordered Sig/Suellen Route Start Time Stop Time Status Last Admin Dose Admin Acetaminophen/ Hydrocodone Bitart 1 tab Q4HP PRN PO 04/03/25 08:15 Ondansetron HCl 4 mg Q4HP PRN IV 04/03/25 08:15 Docusate Sodium 100 mg BIDPRN PRN PO 04/03/25 08:15 Acetaminophen 650 mg Q6HP PRN PO 04/03/25 08:15 04/06/25 13:22 650 MG Nitroglycerin 0.4 mg Q5MINP PRN SL 04/03/25 08:15 Morphine Sulfate 2 mg Q30M PRN IV 04/03/25 08:15 Morphine Sulfate 1 mg Q8HP PRN IV 04/06/25 12:00 Heparin Sodium/ Dextrose 250 ml @ 6 mls/hr Q24H IV 04/08/25 07:15 04/08/25 08:24 6 MLS/HR Laboratory Results Laboratory Tests 04/08/25 05:33 Chemistry Test 04/08/25 05:33 Albumin 3.5 g/dL (3.2-4.8) Calcium Level 8.5 mg/dL (8.7-10.4) L Total Protein 5.9 g/dL (5.7-8.2) Coagulation Test 04/07/25 17:29 04/07/25 23:38 04/08/25 05:33 Prothrombin Time 11.0 sec (9.3-11.8) 11.0 sec (9.3-11.8) 11.2 sec (9.3-11.8) Prothrombin Time INR 1.04 (0.9-1.15) 1.04 (0.9-1.15) 1.06 (0.9-1.15) Activated Partial Thromboplast Time 59.3 SEC (24.5-34.5) H 56.6 SEC (24.5-34.5) H 101.6 SEC (24.5-34.5) *H LFT Test 04/08/25 05:33 Alanine Aminotransferase (ALT) 16 U/L (7-40) Alkaline Phosphatase 64 U/L (46-116) Aspartate Amino Transferase (AST) 18 U/L (13-40) Total Bilirubin 0.3 mg/dL (0.2-1.0) Microbiology Microbiology Date/Time Source Procedure Growth Status 04/03/25 00:30 Blood Blood Culture - Final NO GROWTH AFTER 5 DAYS OF INCUBATION. Complete Labs and/or images reviewed: Labs reviewed by me, Image(s) reviewed by me Assessment/Plan Assessment/Plan Acute bilateral PE.: Continue heparin drip, Radiology consult for thrombectomy family refused thrombectomy Bilateral DVT. NSTEMI. Rule out structural heart disease. Consult by Dr. Abdirahman Bradley appreciated Hypertension. Dyslipidemia. History of peptic ulcer disease Plan discussed with: Patient Date of Service: Apr 08, 2025 Billing Provider: TAVON CANSECO MD Common Visit Codes: [id number] INP/OBS CARE(HIGH) TAVON CANSECO MD Apr 08, 2025 13:46
[2025-04-08 15:21] LABS: INR 1.03 (0.9-1.15); Partial Thromboplastin Time 42.3 SEC (24.5-34.5); Prothrombin Time 10.9 sec (9.3-11.8)
--- NOTE | 2025-04-08 15:33 | CONS ---
Pharmacy Clinical Information: HEPARIN DRIP, DVT PROTOCOL @14:43 APTT 42.3 - NO BOLUS/ INCREASE HEPARIN DRIP RATE TO 800 UNITS/HR NEXT APTT DRAW SCHEDULED @0 CONFIRMED AND READ BACK WITH DAMIAN PUCKETT PHARMACIST Apr 08, 2025 15:33
[2025-04-08 21:54] LABS: INR 1.01 (0.9-1.15); Partial Thromboplastin Time 41.6 SEC (24.5-34.5); Prothrombin Time 10.7 sec (9.3-11.8)
--- NOTE | 2025-04-08 23:52 | DVHPN2 ---
Progress Note - Dictate Date Seen: Apr 08, 2025 Medical Necessity Reason Pt with a Central, PICC or Fol: No Subjective Patient was seen and evaluated in follow up. Patient denies any complaints today. Patient remains on Heparin drip. HGB 8.2, HCT 25.7. Telemetry reviewed. vital signs Vital Sign Date Time Temp Pulse Resp B/P (MAP) Pulse Ox O2 Delivery O2 Flow Rate FiO2 04/08/25 09:15 98.3 67 17 139/87 (104) 96 98.3 04/08/25 08:00 Room Air* 0 21 Total Intake and Output 04/07/25 04/07/25 04/08/25 15:00 23:00 07:00 Intake Total 500 ml 477 ml Balance 500 ml 477 ml medications Current Medications Medications Dose Ordered Sig/Suellen Route Start Time Stop Time Status Last Admin Dose Admin Acetaminophen/ Hydrocodone Bitart 1 tab Q4HP PRN PO 04/03/25 08:15 Ondansetron HCl 4 mg Q4HP PRN IV 04/03/25 08:15 Docusate Sodium 100 mg BIDPRN PRN PO 04/03/25 08:15 Acetaminophen 650 mg Q6HP PRN PO 04/03/25 08:15 04/06/25 13:22 650 MG Nitroglycerin 0.4 mg Q5MINP PRN SL 04/03/25 08:15 Morphine Sulfate 2 mg Q30M PRN IV 04/03/25 08:15 Morphine Sulfate 1 mg Q8HP PRN IV 04/06/25 12:00 Heparin Sodium/ Dextrose 250 ml @ 6 mls/hr Q24H IV 04/08/25 07:15 04/08/25 08:24 6 MLS/HR objective GENERAL: Alert and oriented x 3. No acute distress. EYES: PERRL, EOMI. Anicteric. HENT: Moist mucous membranes. LUNGS: Clear to auscultation bilaterally. CARDIOVASCULAR: Regular rate and rhythm. ABDOMEN: Soft, nontender and nondistended. EXTREMITIES: No edema. NEUROLOGIC: No focal neurological deficits. SKIN: Warm, dry. laboratory and microbiology Laboratory Tests 04/08/25 05:33 Test 04/08/25 05:33 Range/Units Serum Glucose 89 74-106 mg/dL Problem List NSTEMI. Rule out structural heart disease. Hypertension. Dyslipidemia. History of peptic ulcer disease. Acute bilateral PE. Bilateral DVT. Assessment/Plan Continued all current supportive medical care. Morphine and [place] for pain management. Heparin drip per pharmacy. Nitro SL. Additional plan as per the hospital course. Dietary Evaluation Review Comments: 1) If patient remains NPO > 7 days, consider EN/TPN to meet at least 75% estimated daily needs 2) Advance to cardiac diet when medically feasible 3) Follow-up with cardiology 4) Continue to monitor I&O, labs, and skin integrity Expected Outcomes/Goals: 1) patient to receive nutritional support within 7 days of NPO status 2) diet to advance 3) labs to improve 4) f/u in 3-5 days Plan discussed with: Patient LASHA VELÁZQUEZ MD Apr 08, 2025 13:48
[2025-04-09] VITALS (9 sets, daily range): BP systolic 128–160; BP diastolic 56–84; PULSE 66–79; RESP 16–18; TEMP 97–98.3; O2SAT 94–98
[2025-04-09 06:07] LABS: Alanine Aminotransferase 16 U/L (7-40); Alkaline Phosphatase 68 U/L (46-116); Anion Gap 11 (5-15); BUN/Creatinine Ratio 15.5 (10.0-20.0); Blood Urea Nitrogen 9 mg/dL (9-23); Carbon Dioxide 20 mmol/L (20-31); Glucose 89 mg/dL (74-106); Potassium 3.6 mmol/L (3.5-5.1); Sodium 141 mmol/L (136-145); Total Protein 6.0 g/dL (5.7-8.2)
[2025-04-09 06:14] LABS: Bilirubin, Total 0.3 mg/dL (0.2-1.0); Calcium 8.7 mg/dL (8.7-10.4); Chloride 110 mmol/L (98-107); Hematocrit 26.0 % (36.0-46.0); Hemoglobin 8.2 g/dL (12.2-16.2); Mean Corpuscular Hemoglobin 21.0 pg (28.0-32.0); Mean Corpuscular Volume 66.7 fL (80.0-100.0); Nucleated Red Blood Cells % 0.0 %
[2025-04-09 06:18] LABS: INR 1.06 (0.9-1.15); Prothrombin Time 11.2 sec (9.3-11.8)
[2025-04-09 06:25] LABS: Partial Thromboplastin Time 95.2 SEC (24.5-34.5)
[2025-04-09 06:48] LABS: Albumin 3.4 g/dL (3.2-4.8)
[2025-04-09] MEDS: HEPARIN DRIP/D5W 100UNITS/ML 250 ML IV SCH (07:36)
--- NOTE | 2025-04-09 12:31 | DVHPN2 ---
Reviewed: Care Plan, H&P, Labs, Medications, Previous Orders, Radiology Changes from previous H/P or p: No Changes Eyes: No Pain, No Vision change, No Conjunctivae inflammation, No Eyelid inflammation, No Other, No Redness ENT: No Ear pain, No Ear discharge, No Nose pain, No Nose discharge, No Nose congestion, No Mouth pain, No Mouth swelling, No Throat pain, No Throat swelling, No Other Cardiovascular: No Chest Pain, No Palpitations, No Orthopnea, No Paroxysmal Noc. Dyspnea, No Edema, No Lt Headedness, No Other Respiratory: No Cough, No Dry; Shortness of breath; No SOB with excertion, No Wheezing, No Hemoptysis, No Pleuritic Pain, No Sputum, No Other Gastrointestinal: No Nausea, No Vomiting, No Abdominal Pain, No Diarrhea, No Constipation, No Melena, No Hematochezia, No Other Genitourinary: No Dysuria, No Frequency, No Incontinence, No Hematuria, No Retention, No Other Musculoskeletal: No other, No neck pain, No shoulder pain, No arm pain, No back pain, No hand pain, No leg pain, No foot pain Skin: No Rash, No Lesions, No Jaundice, No Bruising, No Other Objective Vitals Vital Signs Date Time Temp Pulse Resp B/P (MAP) Pulse Ox O2 Delivery O2 Flow Rate FiO2 04/09/25 09:00 97.9 70 16 128/78 (95) 97 97.9 04/09/25 08:11 Room Air* 0 21 Intake/Output Intake and Output 04/09/25 06:59 Intake Total 970 ml Balance 970 ml Intake Oral 900 ml IV Total 70 ml # Voids 7 # Bowel Movements 1 Medications Current Medications Medications Dose Ordered Sig/Suellen Route Start Time Stop Time Status Last Admin Dose Admin Acetaminophen/ Hydrocodone Bitart 1 tab Q4HP PRN PO 04/03/25 08:15 Ondansetron HCl 4 mg Q4HP PRN IV 04/03/25 08:15 Docusate Sodium 100 mg BIDPRN PRN PO 04/03/25 08:15 Acetaminophen 650 mg Q6HP PRN PO 04/03/25 08:15 04/06/25 13:22 650 MG Nitroglycerin 0.4 mg Q5MINP PRN SL 04/03/25 08:15 Morphine Sulfate 2 mg Q30M PRN IV 04/03/25 08:15 Morphine Sulfate 1 mg Q8HP PRN IV 04/06/25 12:00 Apixaban 5 mg BID PO 04/09/25 22:00 UNV Apixaban 10 mg BID PO 04/09/25 11:45 04/16/25 11:44 UNV Laboratory Results Laboratory Tests 04/09/25 04:40 Chemistry Test 04/09/25 04:40 Albumin 3.4 g/dL (3.2-4.8) Calcium Level 8.7 mg/dL (8.7-10.4) Total Protein 6.0 g/dL (5.7-8.2) Coagulation Test 04/08/25 14:43 04/08/25 21:06 04/09/25 04:40 Prothrombin Time 10.9 sec (9.3-11.8) 10.7 sec (9.3-11.8) 11.2 sec (9.3-11.8) Prothrombin Time INR 1.03 (0.9-1.15) 1.01 (0.9-1.15) 1.06 (0.9-1.15) Activated Partial Thromboplast Time 42.3 SEC (24.5-34.5) H 41.6 SEC (24.5-34.5) H 95.2 SEC (24.5-34.5) *H LFT Test 04/09/25 04:40 Alanine Aminotransferase (ALT) 16 U/L (7-40) Alkaline Phosphatase 68 U/L (46-116) Aspartate Amino Transferase (AST) 20 U/L (13-40) Total Bilirubin 0.3 mg/dL (0.2-1.0) Microbiology Microbiology Date/Time Source Procedure Growth Status 04/03/25 00:30 Blood Blood Culture - Final NO GROWTH AFTER 5 DAYS OF INCUBATION. Complete Labs and/or images reviewed: Labs reviewed by me, Image(s) reviewed by me Assessment/Plan Assessment/Plan Acute bilateral PE.: Continue heparin drip, Radiology consult for thrombectomy family refused thrombectomy Bilateral DVT. NSTEMI. Rule out structural heart disease. Consult by Dr. Abdirahman Bradley appreciated Hypertension. Dyslipidemia. History of peptic ulcer disease Time Spent 45 minutes Plan discussed with: Patient Date of Service: Apr 09, 2025 Billing Provider: TAVON CANSECO MD Common Visit Codes: [id number] INP/OBS CARE(HIGH) TAVON CANSECO MD Apr 09, 2025 12:31
[2025-04-09] MEDS: APIXABAN 5 MG TAB PO SCH (12:40)
--- NOTE | 2025-04-09 13:18 | ECG ---
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
[2025-04-09] MEDS ORDERED: APIXABAN 5 MG TAB PO SCH (22:00)
--- NOTE | 2025-04-09 23:20 | DVHPN2 ---
Progress Note - Dictate Date Seen: Apr 09, 2025 Medical Necessity Reason Pt with a Central, PICC or Fol: No Subjective Patient was seen and evaluated in follow up. Patient is comfortable in bed. [facility]. HGB 8.2, HCT 26. Telemetry reviewed. vital signs Vital Sign Date Time Temp Pulse Resp B/P (MAP) Pulse Ox O2 Delivery O2 Flow Rate FiO2 04/09/25 09:00 97.9 70 16 128/78 (95) 97 97.9 04/09/25 08:11 Room Air* 0 21 Total Intake and Output 04/08/25 04/08/25 04/09/25 15:00 23:00 07:00 Intake Total 770 ml 200 ml Balance 770 ml 200 ml medications Current Medications Medications Dose Ordered Sig/Suellen Route Start Time Stop Time Status Last Admin Dose Admin Acetaminophen/ Hydrocodone Bitart 1 tab Q4HP PRN PO 04/03/25 08:15 Ondansetron HCl 4 mg Q4HP PRN IV 04/03/25 08:15 Docusate Sodium 100 mg BIDPRN PRN PO 04/03/25 08:15 Acetaminophen 650 mg Q6HP PRN PO 04/03/25 08:15 04/06/25 13:22 650 MG Nitroglycerin 0.4 mg Q5MINP PRN SL 04/03/25 08:15 Morphine Sulfate 2 mg Q30M PRN IV 04/03/25 08:15 Morphine Sulfate 1 mg Q8HP PRN IV 04/06/25 12:00 Apixaban 5 mg BID PO 04/16/25 10:00 Apixaban 10 mg BID PO 04/09/25 12:33 04/16/25 09:59 04/09/25 12:40 10 MG objective GENERAL: Alert and oriented x 3. No acute distress. EYES: PERRL, EOMI. Anicteric. HENT: Moist mucous membranes. LUNGS: Clear to auscultation bilaterally. CARDIOVASCULAR: Regular rate and rhythm. ABDOMEN: Soft, nontender and nondistended. EXTREMITIES: No edema. NEUROLOGIC: No focal neurological deficits. SKIN: Warm, dry. laboratory and microbiology Laboratory Tests 04/09/25 04:40 Test 04/09/25 04:40 Range/Units Serum Glucose 89 74-106 mg/dL Problem List NSTEMI. Rule out structural heart disease. Hypertension. Dyslipidemia. History of peptic ulcer disease. Acute bilateral PE. Bilateral DVT. Assessment/Plan Continued all current supportive medical care. Nitro SL. Eliquis. Morphine and [place] for pain management. Additional plan as per the hospital course. Dietary Evaluation Review Comments: 1) If patient remains NPO > 7 days, consider EN/TPN to meet at least 75% estimated daily needs 2) Advance to cardiac diet when medically feasible 3) Follow-up with cardiology 4) Continue to monitor I&O, labs, and skin integrity Expected Outcomes/Goals: 1) patient to receive nutritional support within 7 days of NPO status 2) diet to advance 3) labs to improve 4) f/u in 3-5 days Plan discussed with: Patient LASHA VELÁZQUEZ MD Apr 09, 2025 12:51
[2025-04-10 01:00] VITALS: BP 147/77; PULSE 75; RESP 18; TEMP 97; O2SAT 97
[2025-04-10 05:00] VITALS: BP 154/89; PULSE 67; RESP 16; TEMP 97.6; O2SAT 98
[2025-04-10 07:06] LABS: Alanine Aminotransferase 17 U/L (7-40); Alkaline Phosphatase 75 U/L (46-116); Anion Gap 11 (5-15); BUN/Creatinine Ratio 10.8 (10.0-20.0); Calcium 9.0 mg/dL (8.7-10.4); Carbon Dioxide 23 mmol/L (20-31); Glucose 84 mg/dL (74-106); Sodium 142 mmol/L (136-145); Total Protein 6.4 g/dL (5.7-8.2)
[2025-04-10 07:07] LABS: Albumin 3.7 g/dL (3.2-4.8); Bilirubin, Total 0.3 mg/dL (0.2-1.0)
[2025-04-10 07:08] LABS: Blood Urea Nitrogen 7 mg/dL (9-23); Chloride 108 mmol/L (98-107); Potassium 3.4 mmol/L (3.5-5.1)
[2025-04-10 07:10] LABS: Hematocrit 27.2 % (36.0-46.0); Hemoglobin 8.9 g/dL (12.2-16.2); Mean Corpuscular Hemoglobin 21.4 pg (28.0-32.0); Mean Corpuscular Volume 65.6 fL (80.0-100.0); Nucleated Red Blood Cells % 0.0 %
[2025-04-10 08:00] VITALS: PULSE 65
[2025-04-10 09:00] VITALS: BP 153/78; PULSE 68; RESP 18; TEMP 97.4; O2SAT 97
--- NOTE | 2025-04-10 10:19 | DVHPN2 ---
Reviewed: Care Plan, H&P, Labs, Medications, Previous Orders, Radiology Changes from previous H/P or p: No Changes Eyes: No Pain, No Vision change, No Conjunctivae inflammation, No Eyelid inflammation, No Other, No Redness ENT: No Ear pain, No Ear discharge, No Nose pain, No Nose discharge, No Nose congestion, No Mouth pain, No Mouth swelling, No Throat pain, No Throat swelling, No Other Cardiovascular: No Chest Pain, No Palpitations, No Orthopnea, No Paroxysmal Noc. Dyspnea, No Edema, No Lt Headedness, No Other Respiratory: No Cough, No Dry; Shortness of breath; No SOB with excertion, No Wheezing, No Hemoptysis, No Pleuritic Pain, No Sputum, No Other Gastrointestinal: No Nausea, No Vomiting, No Abdominal Pain, No Diarrhea, No Constipation, No Melena, No Hematochezia, No Other Genitourinary: No Dysuria, No Frequency, No Incontinence, No Hematuria, No Retention, No Other Musculoskeletal: No other, No neck pain, No shoulder pain, No arm pain, No back pain, No hand pain, No leg pain, No foot pain Skin: No Rash, No Lesions, No Jaundice, No Bruising, No Other Objective Vitals Vital Signs Date Time Temp Pulse Resp B/P (MAP) Pulse Ox O2 Delivery O2 Flow Rate FiO2 04/10/25 09:00 97.4 68 18 153/78 (103) 97 97.4 04/09/25 20:00 Room Air* 0 21 Intake/Output Intake and Output 04/10/25 07:00 Intake Total 1030 ml Output Total 2 ml Balance 1028 ml Intake Oral 1030 ml Stool Total 2 ml # Voids 6 # Bowel Movements 1 Medications Current Medications Medications Dose Ordered Sig/Suellen Route Start Time Stop Time Status Last Admin Dose Admin Acetaminophen/ Hydrocodone Bitart 1 tab Q4HP PRN PO 04/03/25 08:15 Ondansetron HCl 4 mg Q4HP PRN IV 04/03/25 08:15 Docusate Sodium 100 mg BIDPRN PRN PO 04/03/25 08:15 Acetaminophen 650 mg Q6HP PRN PO 04/03/25 08:15 04/06/25 13:22 650 MG Nitroglycerin 0.4 mg Q5MINP PRN SL 04/03/25 08:15 Morphine Sulfate 2 mg Q30M PRN IV 04/03/25 08:15 Morphine Sulfate 1 mg Q8HP PRN IV 04/06/25 12:00 Apixaban 5 mg BID PO 04/16/25 10:00 Apixaban 10 mg BID PO 04/09/25 12:33 04/16/25 09:59 04/10/25 09:24 10 MG Laboratory Results Laboratory Tests 04/10/25 05:56 Chemistry Test 04/10/25 05:56 Albumin 3.7 g/dL (3.2-4.8) Calcium Level 9.0 mg/dL (8.7-10.4) Total Protein 6.4 g/dL (5.7-8.2) LFT Test 04/10/25 05:56 Alanine Aminotransferase (ALT) 17 U/L (7-40) Alkaline Phosphatase 75 U/L (46-116) Aspartate Amino Transferase (AST) 21 U/L (13-40) Total Bilirubin 0.3 mg/dL (0.2-1.0) Microbiology Microbiology Date/Time Source Procedure Growth Status 04/03/25 00:30 Blood Blood Culture - Final NO GROWTH AFTER 5 DAYS OF INCUBATION. Complete Labs and/or images reviewed: Labs reviewed by me, Image(s) reviewed by me Assessment/Plan Assessment/Plan Acute bilateral PE.: Treated with a heparin transitioned to Eliquis, Radiology consult for thrombectomy family refused thrombectomy Bilateral lower extremity DVT NSTEMI. Rule out structural heart disease. Consult by Dr. Abdirahman Bradley appreciated Hypertension. Dyslipidemia. History of peptic ulcer disease Time Spent 45 minutes Plan discussed with: Patient Date of Service: Apr 10, 2025 Billing Provider: TAVON CANSECO MD Common Visit Codes: [id number] INP/OBS CARE(HIGH) TAVON CANSECO MD Apr 10, 2025 10:19
[2025-04-10] MEDS ORDERED: APIX5TAB PO (10:23)
--- NOTE | 2025-04-10 10:28 | DVHDS2 ---
Discharge Summary Date of Admission Apr 03, 2025 at 08:07 Date of Discharge: Apr 10, 2025 Admitting Diagnosis Shortness of breath Wounds: None Labs/Diagnostic Data: Laboratory Results Test 04/10/25 05:56 04/09/25 04:40 04/03/25 14:43 04/03/25 03:12 White Blood Count 5.7 10^3/uL (4.4-10.8) Red Blood Count 4.15 10^6/uL (4.0-5.20) Hemoglobin 8.9 g/dL (12.2-16.2) Hematocrit 27.2 % (36.0-46.0) Mean Corpuscular Volume 65.6 fL (80.0-100.0) Mean Corpuscular Hemoglobin 21.4 pg (28.0-32.0) Mean Corpuscular Hemoglobin Concent 32.6 g/dL (32.0-36.0) Red Cell Distribution Width 18.3 % (11.8-14.3) Platelet Count 494 10^3/uL (140-450) Mean Platelet Volume 6.8 fL (6.9-10.8) Neutrophils (%) (Auto) 60.8 % (37.0-80.0) Lymphocytes (%) (Auto) 27.6 % (10.0-50.0) Monocytes (%) (Auto) 7.9 % (0.0-12.0) Eosinophils (%) (Auto) 2.7 % (0.0-7.0) Basophils (%) (Auto) 1.0 % (0.0-2.0) Neutrophils # (Auto) 3.4 10 ^3/uL (1.6-8.6) Lymphocytes # (Auto) 1.6 10 ^3/uL (0.4-5.4) Monocytes # (Auto) 0.4 10 ^3/uL (0-1.3) Eosinophils # (Auto) 0.2 10 ^3/uL (0-0.8) Basophils # (Auto) 0.1 10 ^3/uL (0-0.2) Nucleated Red Blood Cells 0.0 % Sodium Level 142 mmol/L (136-145) Potassium Level 3.4 mmol/L (3.5-5.1) Chloride Level 108 mmol/L (98-107) Carbon Dioxide Level 23 mmol/L (20-31) Anion Gap 11 (5-15) Blood Urea Nitrogen 7 mg/dL (9-23) Creatinine 0.65 mg/dL (0.550-1.02) Glomerular Filtration Rate Calc 90 mL/min (>90) BUN/Creatinine Ratio 10.8 (10.0-20.0) Serum Glucose 84 mg/dL (74-106) Calcium Level 9.0 mg/dL (8.7-10.4) Total Bilirubin 0.3 mg/dL (0.2-1.0) Aspartate Amino Transferase (AST) 21 U/L (13-40) Alanine Aminotransferase (ALT) 17 U/L (7-40) Alkaline Phosphatase 75 U/L (46-116) Total Protein 6.4 g/dL (5.7-8.2) Albumin 3.7 g/dL (3.2-4.8) Prothrombin Time 11.2 sec (9.3-11.8) Prothrombin Time INR 1.06 (0.9-1.15) Activated Partial Thromboplast Time 95.2 SEC (24.5-34.5) D-Dimer, Quantitative 9.25 mg/L FEU (0.0-0.49) Troponin I High Sensitivity 546 ng/L (</=34) Triglycerides Level 95 mg/dL (< 150) Cholesterol Level 139 mg/dL (< 200) LDL Cholesterol 88 mg/dL (< 100) HDL Cholesterol 50 mg/dL (40-59) Thyroid Stimulating Hormone (TSH) 1.26 uIU/mL (0.55-4.78) Test 04/03/25 00:28 Hemoglobin A1c 5.6 % A1C (<5.7) Lactic Acid Level 1.8 mmol/L (0.4-2.0) Magnesium Level 2.4 mg/dL (1.6-2.6) B-Type Natriuretic Peptide 86.51 pg/mL (0-100) Other Laboratory Tests 04/10/25 05:56 Brief Hx & Hospital Course: 79-year-old female with a history of hypertension hypercholesterolemia peptic ulcer disease burden to the ER and admitted for shortness of breaths found to have acute bilateral PE started on heparin drip per protocol venous ultrasound bilateral lower extremities showed chronic DVT bilateral lower extremities. The family refused thrombectomy at the time of discharge patient is afebrile stable vital signs on room air cleared for discharge by Cardiology heparin was transferred to Eliquis. Prescription for Eliquis transmitted to pharmacy and she will continue for six months follow up with cardiology Dr. Abdirahman Bradley Consults/Reason for consult Cardiology Dr. Bradley Operations or Procedures CT chest angiogram Bilateral lower extremity ultrasound Condition at Discharge: Fair Final Diagnosis/Problems List Acute bilateral PE.: Continue heparin drip, Radiology consult for thrombectomy family refused thrombectomy Bilateral DVT. NSTEMI. Rule out structural heart disease. Consult by Dr. Abdirahman Bradley appreciated Hypertension. Dyslipidemia. History of peptic ulcer disease Discharge Disposition: Home with Health Services Discharge Instruct/Medications Diet: Cardiac 2g Na,low cholest Activity: Light activity Follow Up/Referral: Follow up with the primary Dr in one week Follow up with the Cardiology Dr. Abdirahman Bradley in two weeks Medications: Eliquis 10 mg p.o. b.i.d. seven days Then 5 mg p.o. b.i.d. 180 [facility] Scheduled Apixaban Base (Eliquis), 5 MG PO BID Apixaban Base (Eliquis), 10 MG PO BID 39 (Time taken for discharge summary 39 minutes) Discharge Statement: "Patient was advised to return to the ER or call 911 if any headaches, dizziness, shortness of breath, chest pain, abdominal pain, bleeding, fevers, or worsening of medical condition. Patient was counseled about treatment plan, medications, possible side effects, patientverbalized understanding. All questions were answered to the best of my ability. This discharge took greater then 30 minutes in planning, reviewing documentation, counseling the patient, and discussing with other team members." ASSESSMENT ASSESSMENT Hospital Course Improved Assessment Acute bilateral PE.: Continue heparin drip, Radiology consult for thrombectomy family refused thrombectomy Bilateral DVT. NSTEMI. Rule out structural heart disease. Consult by Dr. Abdirahman Bradley appreciated Hypertension. Dyslipidemia. History of peptic ulcer disease Date of Service: Apr 10, 2025 Billing Provider: TAVON CANSECO MD Common Visit Codes: [id number] DISCH DAY >30min TAVON CANSECO MD Apr 10, 2025 10:28
[2025-04-10 13:00] VITALS: BP 127/77; PULSE 83; RESP 18; TEMP 98.8; O2SAT 98
[2025-04-10 13:02] VITALS: BP 153/78; PULSE 68; RESP 18; TEMP 97.4; O2SAT 97
--- NOTE | 2025-04-10 18:06 | DVHPN2 ---
Progress Note - Dictate Date Seen: Apr 10, 2025 Medical Necessity Reason Pt with a Central, PICC or Fol: No Subjective Patient was seen and evaluated in follow up. Patient has no new complaints at this time. Patient denies any cardiac symptoms. Patient is cardiac stable for discharge. Telemetry reviewed. vital signs Vital Sign Date Time Temp Pulse Resp B/P (MAP) Pulse Ox O2 Delivery O2 Flow Rate FiO2 04/10/25 09:00 97.4 68 18 153/78 (103) 97 97.4 04/10/25 08:00 Room Air* 0 21 Total Intake and Output 04/09/25 04/09/25 04/10/25 15:00 23:00 07:00 Intake Total 850 ml 180 ml Output Total 2 ml Balance 848 ml 180 ml medications Current Medications Medications Dose Ordered Sig/Suellen Route Start Time Stop Time Status Last Admin Dose Admin Acetaminophen/ Hydrocodone Bitart 1 tab Q4HP PRN PO 04/03/25 08:15 Ondansetron HCl 4 mg Q4HP PRN IV 04/03/25 08:15 Docusate Sodium 100 mg BIDPRN PRN PO 04/03/25 08:15 Acetaminophen 650 mg Q6HP PRN PO 04/03/25 08:15 04/06/25 13:22 650 MG Nitroglycerin 0.4 mg Q5MINP PRN SL 04/03/25 08:15 Morphine Sulfate 2 mg Q30M PRN IV 04/03/25 08:15 Morphine Sulfate 1 mg Q8HP PRN IV 04/06/25 12:00 Apixaban 5 mg BID PO 04/16/25 10:00 Apixaban 10 mg BID PO 04/09/25 12:33 04/16/25 09:59 04/10/25 09:24 10 MG objective GENERAL: Alert and oriented x 3. No acute distress. EYES: PERRL, EOMI. Anicteric. HENT: Moist mucous membranes. LUNGS: Clear to auscultation bilaterally. CARDIOVASCULAR: Regular rate and rhythm. ABDOMEN: Soft, nontender and nondistended. EXTREMITIES: No edema. NEUROLOGIC: No focal neurological deficits. SKIN: Warm, dry. laboratory and microbiology Laboratory Tests 04/10/25 05:56 Test 04/10/25 05:56 Range/Units Serum Glucose 84 74-106 mg/dL Problem List NSTEMI. Rule out structural heart disease. Hypertension. Dyslipidemia. History of peptic ulcer disease. Acute bilateral PE. Bilateral DVT. Assessment/Plan Continued all current supportive medical care. Nitro SL. Eliquis. Morphine and [place] for pain management. Additional plan as per the hospital course. Dietary Evaluation Review Comments: 1) If patient remains NPO > 7 days, consider EN/TPN to meet at least 75% estimated daily needs 2) Advance to cardiac diet when medically feasible 3) Follow-up with cardiology 4) Continue to monitor I&O, labs, and skin integrity Expected Outcomes/Goals: 1) patient to receive nutritional support within 7 days of NPO status 2) diet to advance 3) labs to improve 4) f/u in 3-5 days Plan discussed with: Patient LASHA VELÁZQUEZ MD Apr 10, 2025 12:37
[2025-04-16] MEDS ORDERED: APIXABAN 5 MG TAB PO SCH (10:00)
== END 2025-04-10 15:45 | disposition home health service (06) | DRG 190 ==
LOC: EDBD 23:38 → ER 23:38 → OVERFLOW 04-03 08:07 → TELE-WESTW 04-03 14:02
PROVIDERS: ADMIT Family Medicine; ATTEND Family Medicine
DX: I21.4 Non-ST elevation (NSTEMI) myocardial infarction (principal); I26.99 Other pulmonary embolism without acute cor pulmonale; I82.411 Acute embolism and thrombosis of right femoral vein; I27.20 Pulmonary hypertension, unspecified; I82.441 Acute embolism and thrombosis of right tibial vein; I82.511 Chronic embolism and thrombosis of right femoral vein; I82.532 Chronic embolism and thrombosis of left popliteal vein; I10 Essential (primary) hypertension; D64.9 Anemia, unspecified; E78.5 Hyperlipidemia, unspecified; I51.9 Heart disease, unspecified; I24.9 Acute ischemic heart disease, unspecified; Z53.29 Procedure and treatment not carried out because of patient's decision for other reasons; Z87.11 Personal history of peptic ulcer disease; Z79.01 Long term (current) use of anticoagulants
CPT/HCPCS: 36415; 71045; 71275; 80053; 80061; 83036; 83605; 83735; 83880; 84443; 84484; 85025; 85379; 85610; 85730; 87040; 93005; 93306; 93970; 99291; G0378